=== PATIENT | female | born 1960 | race Caucasian/White ===

== ENCOUNTER 2017-05-24 05:38 | Inpatient (IN) ==
[2017-05-24] MEDS: SALINE FLUSH 10ml SYRINGE IVF PRN ×3 (06:06→07:22)
[2017-05-24] MEDS ORDERED: NS 1,000 ML IV ONE (06:11)
[2017-05-24] MEDS ORDERED: DiltiaZEM 25 MG/5 ML INJECTION IVP ONE (06:11)
[2017-05-24] MEDS ORDERED: DiltiaZEM Drip 125 MG in NS 125 ML IV SCH (06:30)
[2017-05-24] MEDS ORDERED: DiphenhydrAMINE 50 MG/ML INJECTION IVP ONE (06:52)
[2017-05-24] MEDS ORDERED: IOHEXOL 350mg/ml 75ml INJECTION ONE (07:23)
[2017-05-24] MEDS: ESMOLOL DRIP 2,500 MG/250 ML BAG IV PRN ×4 (07:57→20:15)
--- NOTE | 2017-05-24 08:54 | Emergency Department Report ---
SOB HPI - General Chief Complaint: Shortness of Breath/Dyspnea Stated Complaint: soa, leg weakness Time Seen by Provider: 05/24/17 06:10 - History of Present Illness 57-year-old female presents with sudden onset shortness of breath. Patient is had no symptoms of dyspnea until this morning. Sudden onset with atrial fibrillation noted on presentation to hospital. She has no previous history of A. fib and a previous history of cardiac issues. No tobacco use, no alcohol use. No family history of atrial fibrillation. She has very mild chest pressure especially when she feels her heart beat speed up. No fever or chills, no nausea or vomiting. - Related Data Home Medications Medication Instructions Recorded Confirmed Mobic (Meloxicam) 7.5 mg tablet 7.5 mg PO BID tab 03/05/17 05/24/17 magnesium oxide 400 mg capsule 1 cap PO BID cap 03/24/17 05/24/17 multivitamin tablet 1 tab PO DAILY 03/24/17 05/24/17 potassium gluconate 550 mg (90 mg) 550 mg PO DAILY tab 03/24/17 05/24/17 tablet Acetaminophen [Tylenol] 1,000 mg PO Q5H PRN 05/01/17 05/24/17 Calcium Carbonate [Calcium] 1 tab PO DAILY 05/01/17 05/24/17 Allergies Allergy/AdvReac Type Severity Reaction Status Date / Time Iodinated Contrast- Oral and Allergy Intermediate ITCHING Verified 05/24/17 06: 49 IV Dye Penicillins Allergy Mild HIVES Verified 05/24/17 06:49 sodium chloride for Allergy Nausea Verified 05/24/17 06:49 inhalation [From Saline] Review of Systems All systems: reviewed and negative except as stated PFSH Patient Stated Medical History Hearing Loss Yes Post Menopausal No Now No Clinic Medical History (Last Updated 02/05/17 @ 09:50 by Burke Reinoso MD) Morbid obesity with BMI of 45.0-49.9, adult (Chronic Medical) Ovarian cancer (Chronic Medical) Surgical History: Lt TKA 09-26-15 Family History: Family History (Last Updated 03/24/17 @ 09:51 by Mayra Rodriguez MA) Father Diabetes Mother Ovarian cancer Sister Ovarian cancer Maternal Grandmother Cancer of lung - Social History Smoking status: Never smoker Substance use type: other, former substance user Alcohol intake frequency: does not drink Physical Exam - Limitations Limitations: no limitations - General General appearance: alert, anxious - Normal Exams: Head:: Normocephalic without trauma Chest/Respirations:: Clear all flynn, with good airflow, and symmetry bilaterally Abdomen:: Bowel sounds positive, soft, non-tender, non-distended, no hepatosplenomegaly, masses or bruits noted Neurological:: Patient is alert, and oriented, cranial nerves, motor/sensory/ cerebellar, exams w/o gross deficits, to observation Psychiatric:: Patient exhibits, appropriate attention, emotion and affect - Cardiovascular Cardiovascular exam: Present: tachycardia, irregular rhythm. Absent: systolic murmur, diastolic murmur Course Vital Signs Temperature 97.7 F 05/24/17 05:47 Pulse Rate 107 H 05/24/17 05:47 Respiratory Rate 32 H 05/24/17 05:47 Blood Pressure 139/83 05/24/17 05:47 Pulse Oximetry 96 05/24/17 05:47 Temperature 97.7 F 05/24/17 05:47 Pulse Rate 107 H 05/24/17 05:47 Respiratory Rate 32 H 05/24/17 05:47 Blood Pressure 139/83 05/24/17 05:47 Pulse Oximetry 96 05/24/17 05:47 Shortness of Breath/Dyspnea - [facility] Narrative Medical decision making narrative: Peripheral IV placed. 500 mL normal saline bolus ordered. Cardizem 20 mg IV bolus ordered. CBC, CMP, troponin, EKG, UA ordered as was TSH. Patient was noted to be in atrial fibrillation with RVR, Cardizem bolus did not improve her rate. We do not have Cardizem IV drip solution, therefore esmolol was started IV drip. Labs returned showing no other significant abnormalities except for d- dimer which is mildly elevated. CT angiogram of chest showed no pulmonary emboli. Patient does not currently have cutter finisher and Dr. Jackson is product consultant. He agreed to consult on the patient and recommended another 30 mg Cardizem by mouth, continue esmolol drip, add Xarelto 20 mg oral. Patient is stable and preparing to discharge to ICU. Troponin is negative. - Medical Records Attestation: I reviewed the patient's medical records. - Lab Data Attestation: I reviewed the patient's lab results. Result diagrams: 05/24/17 06:10 05/24/17 06:10 Lab Results 05/24/17 05/24/17 05/24/17 Range/Units 06:10 06:10 06:10 WBC 9.1 (4.5-11.0) T/MM3 RBC 4.21 (4.00-5.20) M/MM3 Hgb 12.9 (12-16) GM/DL Hct 37.8 (36-46) % MCV 89.8 (80-100) UM3 MCH 30.6 (26-34) UUG MCHC 34.1 (31-37) GM/DL RDW Std Deviation 41.1 (36.9-50.2) FL Plt Count 264 (130-400) T/MM3 MPV 10.5 (9.4-12.4) UM3 Immature Gran % (Auto) 0.1 (0.0-0.5) % Neut % (Auto) 71.6 H (33-66) % Lymph % (Auto) 17.3 L (23-45) % Cache % (Auto) 9.6 H (0-9.0) % Eos % (Auto) 1.2 (0-4) % Baso % (Auto) 0.2 (0-2) % Neut # (Auto) 6.5 (1.8-7.7) T/MM3 Lymph # (Auto) 1.6 (1-4.8) T/MM3 Cache # (Auto) 0.9 H (0-0.8) T/MM3 Eos # (Auto) 0.1 (0-0.5) T/MM3 Baso # (Auto) 0.0 (0-0.2) T/MM3 Abs Immat Gran (auto) 0.01 (0.00-0.03) T/MM3 D-Dimer 334 H (0-230) NG/ML Turbidity < 20 (0-20) Sodium 146 H (134-144) MEQ/L Potassium 3.6 (3.6-5) MEQ/L Chloride 108 H (98-107) MEQ/L Carbon Dioxide 25 (22-30) MEQ/L Anion Gap 13 (5-15) MEQ/L BUN 16.0 (7-17) MG/DL Creatinine 0.7 (0.7-1.2) mg/dL GFR Calculation 86 BUN/Creatinine Ratio 23 (6-26) RATIO Glucose 176 H (65-110) MG/DL Calculated Osmolality 286 H (261-280) MOSM/KG Calcium 10.1 (8.4-10.2) MG/DL Total Bilirubin 0.40 (0.20-1.30) MG/DL Icterus Index < 2 (0-7) AST 26 (14-36) U/L ALT 30 (1-35) U/L Alkaline Phosphatase 91 (38-126) U/L Troponin I < 0.012 (0-0.12) ng/ml Total Protein 6.9 (6.3-8.2) g/dL Albumin 3.9 (3.5-5.0) g/dL Globulin 3.0 (2.4-3.6) G/DL Albumin/Globulin Ratio 1.3 (1.1-2.2) RATIO Specimen Hemolysis < 15 (0-25) Ur Collection Type Urine Color (YELLOW) Urine Clarity Urine pH (5.0-8.0) Ur Specific [place] (1.015-1.025) Urine Protein (NEGATIVE) Urine Glucose (UA) (NEGATIVE) Urine Ketones (NEGATIVE) Urine Occult Blood (NEGATIVE) Urine Nitrate (NEGATIVE) Urine Bilirubin (NEGATIVE) Urine Urobilinogen (NORMAL) EU/DL Ur Leukocyte Esterase (NEGATIVE) Urinalysis Comment 05/24/17 Range/Units 07:28 WBC (4.5-11.0) T/MM3 RBC (4.00-5.20) M/MM3 Hgb (12-16) GM/DL Hct (36-46) % MCV (80-100) UM3 MCH (26-34) UUG MCHC (31-37) GM/DL RDW Std Deviation (36.9-50.2) FL Plt Count (130-400) T/MM3 MPV (9.4-12.4) UM3 Immature Gran % (Auto) (0.0-0.5) % Neut % (Auto) (33-66) % Lymph % (Auto) (23-45) % Cache % (Auto) (0-9.0) % Eos % (Auto) (0-4) % Baso % (Auto) (0-2) % Neut # (Auto) (1.8-7.7) T/MM3 Lymph # (Auto) (1-4.8) T/MM3 Cache # (Auto) (0-0.8) T/MM3 Eos # (Auto) (0-0.5) T/MM3 Baso # (Auto) (0-0.2) T/MM3 Abs Immat Gran (auto) (0.00-0.03) T/MM3 D-Dimer (0-230) NG/ML Turbidity (0-20) Sodium (134-144) MEQ/L Potassium (3.6-5) MEQ/L Chloride (98-107) MEQ/L Carbon Dioxide (22-30) MEQ/L Anion Gap (5-15) MEQ/L BUN (7-17) MG/DL Creatinine (0.7-1.2) mg/dL GFR Calculation BUN/Creatinine Ratio (6-26) RATIO Glucose (65-110) MG/DL Calculated Osmolality (261-280) MOSM/KG Calcium (8.4-10.2) MG/DL Total Bilirubin (0.20-1.30) MG/DL Icterus Index (0-7) AST (14-36) U/L ALT (1-35) U/L Alkaline Phosphatase (38-126) U/L Troponin I (0-0.12) ng/ml Total Protein (6.3-8.2) g/dL Albumin (3.5-5.0) g/dL Globulin (2.4-3.6) G/DL Albumin/Globulin Ratio (1.1-2.2) RATIO Specimen Hemolysis (0-25) Ur Collection Type Urine, void-cc/notcc Urine Color Yellow (YELLOW) Urine Clarity Clear Urine pH 6.0 (5.0-8.0) Ur Specific [place] 1.010 L (1.015-1.025) Urine Protein Negative (NEGATIVE) Urine Glucose (UA) Negative (NEGATIVE) Urine Ketones Negative (NEGATIVE) Urine Occult Blood Negative (NEGATIVE) Urine Nitrate Negative (NEGATIVE) Urine Bilirubin Negative (NEGATIVE) Urine Urobilinogen 0.2 (NORMAL) EU/DL Ur Leukocyte Esterase Negative (NEGATIVE) Urinalysis Comment Microscopic not ind. - Radiology Data Attestation: I reviewed the patient's radiology results. Disposition Clinical Impression: Atrial fibrillation with RVR Disposition: 02 To [facility] [place] Acute Care Condition: Stable Prescriptions: No Action Acetaminophen [Tylenol] 1,000 mg PO Q5H PRN PRN Reason: Pain Calcium Carbonate [Calcium] 1 tab PO DAILY Mobic (Meloxicam) 7.5 mg tablet 7.5 mg PO BID tab multivitamin tablet 1 tab PO DAILY potassium gluconate 550 mg (90 mg) tablet 550 mg PO DAILY tab magnesium oxide 400 mg capsule 1 cap PO BID cap Referrals: Tommy Belcher II, MD [Family Provider] - Time of Disposition: 09:28 - Seen By: physician
[2017-05-24] MEDS ORDERED: RIVAROXABAN 20 MG TABLET PO ONE (09:04)
[2017-05-24] MEDS ORDERED: DiltiaZEM IR 30 MG TABLET PO ONE (09:04)
--- NOTE | 2017-05-24 10:19 | History & Physical Report ---
History of Present Illness Date: 05/24/17 Chief complaint: Weakness, SOA, New onset A-fib with RVR HPI: Loreto is a pleasant 57-year-old female who presented to the emergency room this morning for evaluation of shortness of breath. She reports she has been more fatigued and dyspneic since Sunday 05/21. She notes with minimal exertion she becomes very short of breath and also reports feeling palpitations intermittently. Upon arrival to the emergency room she was found to be in atrial fibrillation with rapid ventricular rate 120-180. Further workup was performed in the emergency room, WBC was normal. Sodium was found to be elevated at 146, potassium normal 3.6. Troponin was undetectable. TSH was found to be less than 0.02. UA is negative and D-dimer is elevated at 334. CT of the chest was performed which does reveal a lingular 4 millimeter nodule in the lungs however no acute pulmonary emboli or other abnormality. Patient was given 20 milligrams of IV Cardizem as well as oral 30 milligrams IR Cardizem. She was also given Xarelto 20 milligrams [address] Jackson was contacted and accepted patient in consultation, the hospitalist services were contacted and accepted patient for admission to the ICU for ongoing evaluation and treatment. Review of Systems All systems PM: 10-point ROS was reviewed, no additional remarkable complaints except - Constitutional Constitutional: Present: fatigue, weakness - Cardiovascular Cardiovascular: Present: palpitations - Respiratory Respiratory: Present: dyspnea, dyspnea on exertion - Gastrointestinal Gastrointestinal: Present: diarrhea (chronic) Past Medical History Patient Stated Medical History History of ovarian cancer-2011 (underwent chemotherapy and radiation) Graves' disease Tired ablation-04/02/17 Morbid obesity Surgical History: Lt TKA 09-26-15. Order catheter placement. Removal of cyst on back. Total abdominal hysterectomy Family History Updates: Father-diabetes. Mother-ovarian cancer. Sister- ovarian cancer. Maternal Grandmother-lung cancer - Social History Smoking status: Never smoker Substance use type: does not use Alcohol intake frequency: does not drink Housing: house Current occupational status: [place] [place] Current residence: Apartment/Private Home Social history: Primary care provider, Dr. 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 Reinoso Medications Home Medications Medication Instructions Recorded Confirmed Type Mobic (Meloxicam) 7.5 mg tablet 7.5 mg PO BID tab 03/05/17 05/24/17 History magnesium oxide 400 mg capsule 1 cap PO BID cap 03/24/17 05/24/17 History multivitamin tablet 1 tab PO DAILY 03/24/17 05/24/17 History potassium gluconate 550 mg (90 mg) 550 mg PO DAILY tab 03/24/17 05/24/17 History tablet Acetaminophen [Tylenol] 1,000 mg PO Q5H PRN 05/01/17 05/24/17 History Calcium Carbonate [Calcium] 1 tab PO DAILY 05/01/17 05/24/17 History Allergies Allergy/AdvReac Type Severity Reaction Status Date / Time Iodinated Contrast- Oral and Allergy Intermediate ITCHING Verified 05/24/17 06: 49 IV Dye Penicillins Allergy Mild HIVES Verified 05/24/17 06:49 sodium chloride for Allergy Nausea Verified 05/24/17 06:49 inhalation [From Saline] Exam Vital Signs: Temperature 97.7 F 05/24/17 05:47 Pulse Rate 107 H 05/24/17 05:47 Respiratory Rate 32 H 05/24/17 05:47 Blood Pressure 139/83 05/24/17 05:47 Pulse Oximetry 96 05/24/17 05:47 Telemetry Rhythm: A-fib with RVR Height/Weight/BMI: Height 1.7 m Weight 119.6 kg - Constitutional Present: no acute distress, well nourished, well developed - Routine HEENT Exam Eye: Present: EOMI ENT: Present: mucous membranes moist, dentition normal - Routine Respiratory Exam Present: CTA bilaterally. Absent: wheezes - Routine Cardiovascular Exam Present: S1, S2, tachycardia (130), irregular rhythm. Absent: murmur - Routine Abdominal Exam Present: soft, normoactive bowel sounds, non distended. Absent: tenderness - Routine Extremities Exam Present: edema (trace BLE edema), pulses intact - Routine Skin Exam Present: intact, dry, warm - Routine Neurological Exam Present: alert, oriented X3, CN II-XII intact, moving all extremities - Routine Psychiatric Exam Present: normal affect, cooperative Results - Labs CBC & Chem 7: 05/24/17 06:10 05/24/17 06:10 Assessment and Plan (1) Atrial fibrillation with RVR Current visit: Yes Status: Acute Assessment and Plan: Impression New-onset atrial fibrillation with rapid ventricular rate Hypernatremia-present on admission Graves' disease Morbid obesity History of ovarian cancer Plan Patient will be admitted to the ICU under the care of Dr. Madrid. Consultations placed to Dr. Jackson for further cardiology management and recommendations. Patient was given both IV and by mouth boluses of Cardizem while in the emergency room. She will now be placed on Esmolol Drip for cardiac rate control Monitor carefully on telemetry and obtain serial troponins 3 Patient was given Xarelto 20 milligrams by mouth 1 while in the emergency room. We will continue this daily for anticoagulation Half-normal saline at 75 ML per hour for gentle hydration Patient has known hyperthyroidism and underwent a thyroid ablation on April 02. TSH remains less than 0.02. May need to speak with Dr. Reinoso, patient's gem cutter. Obtain CBC, BMP and magnesium tomorrow to follow blood counts, renal function and electrolytes Will discuss further orders and plan of care with attending, Dr. Madrid At time of discharge medical care will return to primary care provider, Dr Belcher DVT Prophylaxis: Xarelto Resuscitation Status: Full Code - Time spent with patient Time with patient PN: 50 minutes - Physician Narrative Physician: Osvaldo aMdrid MD Narrative: Date: 05/24/17 Time: 1534 Have independently interviewed and examined pt. Chart reviewed. Case discussed with ED physician and my CREDENTIALING MANAGER. Care plan developed with my supervision; agree with above. Presents to ED secondary to SOA. No cough/congestion, but notes increasingly winded with activities. Denies chest pressure or pain. Occasionally will feel palpitations. No increased edema, but does chronically note swelling to legs. Denies ab pain or nausea. Some decreased appetite reported. No f/c or recent viral syndrome. Evaluated in ED-HR rapid, afib. HR would slow down with medications, but rate unable to be controlled. With AFIB and RVR patient [place] [facility] [place] evaluation and treatment. Lungs: decreased, no distress CV: tachy, irregular AB: soft nt/nd EXT: +2 edema MSE: awake alert Plan: OBS in CCU. Esmolol for rate control. Xarelto for anticoagulation. Consult Dr Jackson for cardiac evaluation and treatment recommendations. Serial troponin. Initiate 1/2NS for hydration and to provide renal protection secondary to IV contrast given in ED. Hospital Course Summary Disclaimer: The visit summary below is not to be considered part of the above Progress Note. Hospital Course: Impression New-onset atrial fibrillation with rapid ventricular rate Hypernatremia-present on admission Graves' disease Morbid obesity History of ovarian cancer Plan Patient will be admitted to the ICU under the care of Dr. Madrid. Consultations placed to Dr. Jackson for further cardiology management and recommendations. Patient was given both IV and by mouth boluses of Cardizem while in the emergency room. She will now be placed on Esmolol Drip for cardiac rate control Monitor carefully on telemetry and obtain serial troponins 3 Patient was given Xarelto 20 milligrams by mouth 1 while in the emergency room. We will continue this daily for anticoagulation Half-normal saline at 75 ML per hour for gentle hydration Patient has known hyperthyroidism and underwent a thyroid ablation on April 02. TSH remains less than 0.02. May need to speak with Dr. Reinoso, patient's gem cutter. Obtain CBC, BMP and magnesium tomorrow to follow blood counts, renal function and electrolytes Will discuss further orders and plan of care with attending, Dr. Madrid At time of discharge medical care will return to primary care provider, Dr Belcher
[2017-05-24] MEDS ORDERED: ACETAMINOPHEN 500 MG TABLET PO PRN (11:03)
[2017-05-24] MEDS: 1/2 NS 1,000 ML IV SCH (11:26)
[2017-05-24 11:33] VITALS: BMI 40.8
[2017-05-24] MEDS: RIVAROXABAN 20 MG TABLET PO SCH (18:00)
[2017-05-24] MEDS ORDERED: DiltiaZEM 25 MG/5 ML INJECTION IVP PRN (18:34)
--- NOTE | 2017-05-24 18:47 | Cardiology Consult Note ---
History of Present Illness Consult reason: atrial fibrillation History of present illness: Mr. Blackwood is a pleasant 57-year-old female, whose mother is my patient, patient herself has no prior known heart disease, history of Graves' disease treated with radioactive iodine ablation treatment on 04/02/2017. She presented to the emergency room with a three-day history of dyspnea with mild activity exertional palpitations , weakness in her legs and feeling hot flashes. She adamantly denies any chest pain pressure orthopnea PND lower extremity edema dizziness or syncope. 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 Patient went to the emergency room and was found to be in atrial fibrillation with RVR in the 170s. d-dimer was elevated and had hyperglycemia without prior known diabetes.Chest x-ray shows no heart failure or cardiomegaly, EKG shows A. fib 100 and teens without acute changes of ischemia or evidence of previous infarct, CT angiogram of the chest showed no pulmonary embolus. Patient received several doses of IV diltiazem with only mild improvement in HR , blood pressure was borderline and subsequently in ED started on esmolol drip and titrated up very slowly in CCU at 80 mics per kilogram per minute, heart rate still intermittently up to 150 then goes down to s100 and teens at times a blood pressure on the monitor in the mid 80s to 100s systolic patient's entirely asymptomatic without any dizziness or lightheadedness, as a matter of fact she is sitting up in chair denying chest pain and dizziness or dyspnea. She is on room air. At My request patient received additional IV diltiazem in emergency room ,I agreed with esmolol drip and a TSH was ordered came back suppressed, free T4 T3 remain pending at this time. Troponin was normal , CBC and chemistry are otherwise unremarkable. Review of systems positive loud snoring and reported history of sleep apnea but no treatment delivered. Denies hypertension or diabetes or hypercholesterolemia no previous heart disease or cardiac testing. No hematochezia melena previous bleed TIA or strokes. Positive for decreased appetite for a few days, loose bowel movements/diarrhea ,normal brown color. No fever chills or phlegm production no nausea or vomiting. Positive for fatigue . Review of Systems All systems PM: 10-point ROS was reviewed, no additional remarkable complaints except PFSH Patient Stated Medical History Hearing Loss Yes: BILATERAL Blood Transfusions Yes Chemotherapy Yes Post Menopausal Yes Clinic Medical History (Last Updated 02/05/17 @ 09:50 by Burke Reinoso MD) Morbid obesity with BMI of 45.0-49.9, adult (Chronic Medical) Ovarian cancer (Chronic Medical) osteoarthritis suspected sleep apnea Surgical History: Lt TKA 09-26-15. Order catheter placement. Removal of cyst on back. Total abdominal hysterectomy Family History: Family History (Last Updated 03/24/17 @ 09:51 by Mayra Rodriguez MA) Father Diabetes Mother Ovarian cancer Sister Ovarian cancer Maternal Grandmother Cancer of lung Her sister had atrial fibrillation Family History Updates: Father-diabetes. Mother-ovarian cancer and coronary artery disease with previous stent one her 70s. She is currently in her the 80s. Sister-ovarian cancer. Maternal Grandmother-lung cancer. Her sister has atrial fibrillation - Social History Smoking status: Never smoker Substance use type: does not use Alcohol intake frequency: does not drink Housing: house Current occupational status: employed ([employer] [employer]) Current residence: Apartment/Private Home Medications Home Medications Medication Instructions Recorded Confirmed Type Mobic (Meloxicam) 7.5 mg tablet 7.5 mg PO BID tab 03/05/17 05/24/17 History magnesium oxide 400 mg capsule 1 cap PO BID cap 03/24/17 05/24/17 History multivitamin tablet 1 tab PO DAILY 03/24/17 05/24/17 History potassium gluconate 550 mg (90 mg) 550 mg PO DAILY tab 03/24/17 05/24/17 History tablet Acetaminophen [Tylenol] 1,000 mg PO Q5H PRN 05/01/17 05/24/17 History Calcium Carbonate [Calcium] 1 tab PO DAILY 05/01/17 05/24/17 History Allergies Allergy/AdvReac Type Severity Reaction Status Date / Time Iodinated Contrast- Oral and Allergy Intermediate ITCHING Verified 05/24/17 06: 49 IV Dye Penicillins Allergy Mild HIVES Verified 05/24/17 06:49 sodium chloride for Allergy Nausea Verified 05/24/17 06:49 inhalation [From Saline] Exam Vital signs: Temperature 97.7 F 05/24/17 10:58 Pulse Rate 128 H 05/24/17 17:30 Respiratory Rate 43 H 05/24/17 17:30 Blood Pressure 109/67 05/24/17 17:30 Pulse Oximetry 95 05/24/17 17:30 - Constitutional no acute distress, morbidly obese - Routine HEENT Exam Head: Present: normocephalic, atraumatic Eye: Present: EOMI, PERRL ENT: Present: mucous membranes moist Nose: moist mucous membranes - Routine Neck Exam Present: supple, normal carotid upstroke. Absent: JVD, carotid bruit, lymphadenopathy, thyromegaly - Routine Respiratory Exam Present: CTA bilaterally - Routine Cardiovascular Exam Present: no murmur, tachycardia, irregularly irregular. Absent: rubs, S3, S4, JVD - Routine Abdominal Exam Present: soft, normoactive bowel sounds, non distended (quite obese). Absent: organomegaly - Routine Extremities Exam Present: edema (questionable trace edema in the ankles). Absent: cyanosis, clubbing - Routine Skin Exam Present: intact, dry. Absent: cyanosis, erythema, pallor - Routine Neurological Exam Present: alert, oriented X3, CN II-XII intact, moving all extremities, vision grossly intact, normal speech. Absent: motor deficit, hearing grossly intact, facial asymmetry - Routine Psychiatric Exam Present: normal affect, normal thought process, cooperative Results 05/26/17 04:52 05/26/17 04:52 Cardiac Enzymes 05/24/17 Range/Units 11:50 Troponin I < 0.012 (0-0.12) ng/ml Intake and Output 05/24/17 05/24/17 05/24/17 06:59 14:59 22:59 Intake Total 207.506 / 1207.506 281.993 / 281.993 Output Total 600 / 600 Balance 207.506 / 1207.506 -318.007 / -318.007 Intake: IV 207.506 / 207.506 191.993 / 191.993 Esmolol Drip 2,500 mg In 250 ml 207.506 / 207.506 191.993 / 191.993 @ 50 MCG/KG/MIN 35.88 mls/hr IV .Q6H59M PRN Rx#:[id number] Oral 90 / 90 Output: Urine 600 / 600 Other: Urine Appearance Clear Urine Color Yellow Urine Odor Strong # Voids 1 1 Weight 118.5 kg Patient Weight 05/25/17 06:59 Weight 118.5 kg - Imaging and Cardiology EKG results: image reviewed Imaging & Cardiology Narrative: 05/24/17 18:59 Chest x-ray images reviewed - EKG Interpretation EKG shows: atrial fibrillation EKG interpretations - Dysrhythmias Supraventricular dysrhythmia: atrial fibrillation Assessment and Plan - Assessment and Plan Symptomatic New Onset atrial fibrillation with RVR, of a duration expected to be about or greater than 72 hours chads 2 vasc score at least one Hyperthyroidism status post radioactive iodine ablation March 2017, still with a suppressed TSH, free T4 T3 pending Morbid obesity with history of loud snoring and suspected obstructive sleep apnea hyperglycemia Rate control and anticoagulation As discussed with ER physician ,CCU nurse, the patient and her sister Agree with IV esmolol drip with intermittent IV diltiazem bolus if necessary , please see order Esmolol drip to be titrated upward (or down ) by 50 g dosing intervals. Due to present tachycardia asked the nurse to take it up immediately to 100 mics per kilogram per minute Going to start the by mouth Inderal LA 120 mg twice a day 3 doses then expected daily dose 160-240 milligrams daily Anticoagulation is a started in emergency room with Xarelto Will need an echocardiogram at some point, to rule out structural heart disease. If atrial fibrillation continues expect to need a RITA/cardioversion at some point If adequate heart rate control is achieved on oral drugs within next 48-96 hours , then the rest of the workup /treatment may be continued on outpatient basis. Kindly address hyperthyroidism which is the likely culprit. Unclear why TSH is still suppressed at 2 months following radioactive iodine ablation. Outpatient sleep study is recommended Thank you for consultation Hospital Course Summary Disclaimer: The visit summary below is not to be considered part of the above Progress Note. Hospital Course: Impression New-onset atrial fibrillation with rapid ventricular rate Hypernatremia-present on admission Graves' disease Morbid obesity History of ovarian cancer Plan Patient will be admitted to the ICU under the care of Dr. Madrid. Consultations placed to Dr. Jackson for further cardiology management and recommendations. Patient was given both IV and by mouth boluses of Cardizem while in the emergency room. She will now be placed on Esmolol Drip for cardiac rate control Monitor carefully on telemetry and obtain serial troponins 3 Patient was given Xarelto 20 milligrams by mouth 1 while in the emergency room. We will continue this daily for anticoagulation Half-normal saline at 75 ML per hour for gentle hydration Patient has known hyperthyroidism and underwent a thyroid ablation on April 02. TSH remains less than 0.02. May need to speak with Dr. Reinoso, patient's design quality engineer. Obtain CBC, BMP and magnesium tomorrow to follow blood counts, renal function and electrolytes Will discuss further orders and plan of care with attending, Dr. Madrid At time of discharge medical care will return to primary care provider, Dr Belcher
[2017-05-24] MEDS: PROPRANOLOL LA 120 MG CAPSULE PO SCH (19:32)
[2017-05-24] MEDS: MAGNESIUM OXIDE 400 MG TABLET PO SCH (20:57)
[2017-05-25] MEDS: 1/2 NS 1,000 ML IV SCH (00:54)
[2017-05-25] MEDS: ESMOLOL DRIP 2,500 MG/250 ML BAG IV PRN ×6 (03:51→22:24)
[2017-05-25] MEDS ORDERED: POTASSIUM GLUCONATE 550 MG PO SCH (09:00)
[2017-05-25] MEDS: MULTI-VITAMIN PLAIN TABLET PO SCH (09:09)
[2017-05-25] MEDS: MAGNESIUM OXIDE 400 MG TABLET PO SCH ×2 (09:10→20:04)
[2017-05-25] MEDS: PROPRANOLOL LA 120 MG CAPSULE PO SCH (09:10)
--- NOTE | 2017-05-25 09:14 | XRay Report ---
INDICATION: soa PROCEDURE: CHEST 2-VIEWS UPRIGHT (PA & LAT) Encounter: Initial COMPARISON: September 05, 2015 FINDINGS: The lungs are clear without evidence of focal abnormal airspace opacity. There is no pleural effusion or pneumothorax. Left IJ port catheter. The heart size, mediastinal contours and pulmonary vascularity are within normal limits. There is no significant skeletal abnormality. IMPRESSION: No acute cardiopulmonary disease. .
--- NOTE | 2017-05-25 09:22 | CT Scan Report ---
Indication: dyspnea, elevated ddimer PROCEDURE: CT angio pulm emboli: Encounter: Initial Comparison: CT abdomen and pelvis dated April 25, [address] dated October 07, 2013 Technique: Axial CT pulmonary angiographic phase images were performed through the chest after the administration of intravenous contrast. Coronal and Sagittal MIP reconstructed images were created and reviewed. Automated Exposure Control and Iterative Reconstruction dose reducing techniques were utilized. Contrast: Omnipaque 350 72 mL Findings: Pulmonary arteries: Exam is diagnostic to the segmental pulmonary arterial level. No filling defects identified to suggest a pulmonary embolus. Other findings: No pneumothorax or pleural effusion. No consolidative pneumonia. There is a new irregular subpleural 6 mm nodule in the lingula on axial image #34. The lung flynn are otherwise clear. Central airways are patent. No axillary or mediastinal adenopathy. Heart size is normal. Upper abdomen shows no acute findings. Impression: 1. No pulmonary embolus or acute disease process seen in the chest. 2. New 6 mm lingular pulmonary nodule raising concern for metastasis. There is a preliminary report by [email or web address]. .
[2017-05-25] MEDS: MAG-AL + SIM ORAL LIQUID 30ml PO PRN (09:50)
--- NOTE | 2017-05-25 10:29 | Progress Note ---
- Date 05/25/17 Subjective: F/U: Afib with RVR Doing okay today. No chest pressure pain. HR still in afib with rapid and variable rate. BP in low 100s. Breathing stable-not feeling increased SOA or congestion. No pain with breathing. Feels gassy-burping often. Passing flatus. Slight nausea. Would like to be up more. Urinating well. No f/c. Objective Vital signs: Temperature 98.2 F 05/25/17 08:29 Pulse Rate 98 05/25/17 08:30 Respiratory Rate 18 05/25/17 08:30 Blood Pressure 90/59 05/25/17 08:30 Pulse Oximetry 95 05/25/17 08:30 Rhythm: Atrial Fibrillation with RVR Height/Weight/BMI: Height 1.7 m Weight 118.5 kg Body Mass Index 40.8 - Constitutional Present: well nourished, well developed, average body habitus, morbidly obese, cooperative - Routine HEENT Exam Head: Present: normocephalic, atraumatic Eye: Present: EOMI, PERRL ENT: Present: mucous membranes moist - Routine Respiratory Exam Present: CTA bilaterally. Absent: rales, respiratory distress, rhonchi, stridor , wheezes - Routine Cardiovascular Exam Present: no murmur, tachycardia, irregularly irregular - Routine Abdominal Exam Present: soft, non distended, non tender. Absent: normoactive bowel sounds ( Decreased) - Routine Extremities Exam Present: edema (+2BLE), pulses intact. Absent: cyanosis, clubbing - Routine Musculoskeletal Exam Musculoskeletal: Present: no clubbing or cyanosis, normal strength - Routine Skin Exam Present: dry, warm - Routine Neurological Exam Present: alert, oriented X3, CN II-XII intact, moving all extremities, vision grossly intact, hearing grossly intact, normal speech. Absent: motor deficit, altered mental status - Routine Psychiatric Exam Present: normal affect, normal thought process, cooperative Results - Labs CBC & Chem 7: 05/25/17 04:40 05/25/17 04:40 Assessment and Plan (1) Atrial fibrillation with RVR Current visit: Yes Status: Acute Assessment and Plan: Impression New-onset atrial fibrillation with rapid ventricular rate Hypernatremia (POA) Graves' disease Morbid obesity History of ovarian cancer Plan Oral propranolol started by Dr Jackson-working to wean down esmolol. Rhythm afib with rapid and variable rate. Continue Xarelto for anticoagulation. Renal status stable post IV contrast. Taking po well. Will discontinue IVF. Free T3 and T4 pending. Will place consult for Evaluation by Dr Reinoso - is scheduled to see him in about 2 weeks. Monitor BMP and Mg secondary to medications use. Will recheck CBC in am due to Xarelto use. Continue CCU care and monitoring - with persistent afib with RVR, patient not able to move to medical floor at this time. With continued need for IV drip to control rate, will change to inpatient admission status. Case discussed with CCU nursing. Time spent with patient care 25 minutes. DVT Prophylaxis: Xarelto Resuscitation Status: Full Code - Time spent with patient Time with patient PN: 25 minutes - Physician Narrative Physician: Osvaldo Madrid MD Narrative: Date: 05/25/17 Time: 1026 Hospital Course Summary Disclaimer: The visit summary below is not to be considered part of the above Progress Note. Hospital Course: 05/24/17 OBS Admission Patient will be admitted to the ICU under the care of Dr. Madrid. Consultations placed to Dr. Jackson for further cardiology management and recommendations. Patient was given both IV and by mouth boluses of Cardizem while in the emergency room. She will now be placed on Esmolol Drip for cardiac rate control. Monitor carefully on telemetry and obtain serial troponins 3. Patient was given Xarelto 20 milligrams by mouth 1 while in the emergency room. We will continue this daily for anticoagulation. Half-normal saline at 75 ML per hour for gentle hydration. Patient has known hyperthyroidism and underwent a thyroid ablation on April 02. TSH remains less than 0.02. May need to speak with Dr. Reinoso, patient's curing machine operator. Obtain CBC, BMP and magnesium tomorrow to follow blood counts, renal function and electrolytes. At time of discharge medical care will return to primary care provider, Dr Belcher. 05/25/17 Oral propranolol started by Dr Jackson-working to wean down esmolol. Rhythm afib with rapid and variable rate. Continue Xarelto for anticoagulation. Renal status stable post IV contrast. Taking po well. Will discontinue IVF. Free T3 and T4 pending. Will place consult for Evaluation by Dr Reinoso - is scheduled to see him in about 2 weeks. Monitor BMP and Mg secondary to medications use. Will recheck CBC in am due to Xarelto use. Continue CCU care and monitoring - with persistent afib with RVR, patient not able to move to medical floor at this time. With continued need for IV drip to control rate, will change to inpatient admission status.
[2017-05-25] MEDS: CALCIUM CARBONATE 500 MG TABLET PO SCH (11:04)
[2017-05-25] MEDS ORDERED: PROPRANOLOL LA 120 MG CAPSULE PO ONE (11:55)
[2017-05-25] MEDS: RIVAROXABAN 20 MG TABLET PO SCH (17:25)
[2017-05-26] MEDS: ESMOLOL DRIP 2,500 MG/250 ML BAG IV PRN ×6 (01:26→17:01)
[2017-05-26] MEDS: DIGOXIN 500 MCG/2 ML INJECTION IVP PRN ×2 (01:26→07:40)
[2017-05-26] MEDS: SALINE FLUSH 10ml SYRINGE IVF PRN (07:40)
[2017-05-26] MEDS: MAG-AL + SIM ORAL LIQUID 30ml PO PRN (07:44)
[2017-05-26] MEDS ORDERED: PROPRANOLOL LA 120 MG CAPSULE PO SCH (09:00)
[2017-05-26] MEDS ORDERED: PROPRANOLOL LA 80 MG CAPSULE PO SCH (09:00)
[2017-05-26] MEDS: MULTI-VITAMIN PLAIN TABLET PO SCH (09:11)
[2017-05-26] MEDS: CALCIUM CARBONATE 500 MG TABLET PO SCH (09:11)
[2017-05-26] MEDS: PROPYLTHIOURACIL 50 MG TABLET PO SCH ×3 (09:11→20:07)
[2017-05-26] MEDS: MAGNESIUM OXIDE 400 MG TABLET PO SCH ×2 (09:11→20:07)
[2017-05-26] MEDS ORDERED: BISACODYL 10 MG SUPPOSITORY RECTALLY PRN (09:42)
[2017-05-26] MEDS ORDERED: PROPRANOLOL LA 120 MG CAPSULE PO ONE (13:45)
--- NOTE | 2017-05-26 13:57 | Cardiology Progress Note ---
Subjective Interval history: nabil c/o of some abd distension earlier and c/o constipation. She did receive MOM with improvement per Lorena RN. walked last night in the unit felt a bit SOA but no dizziness cp or severe dyspnea. no plapitaions. she s still on Esmolol gtt at 150 mcg. hasn't gentry able to wean. did erceive 2 doses of IV dig w/o much effect on HR. seen by Dr Reinoso and started on PTU. tele afib 110's w short few sec.runs up 150 during conversation and up 120'130s w activity per RN. Exam Vital signs: Temperature 99.5 F 05/26/17 04:00 Pulse Rate 103 H 05/26/17 07:00 Respiratory Rate 17 05/26/17 07:00 Blood Pressure 117/67 05/26/17 07:00 Pulse Oximetry 93 05/26/17 07:00 Inpatient Medications: Generic Name Dose Route Start Last Admin Trade Name Freq PRN Reason Stop Dose Admin Acetaminophen 1,000 mg 05/24/17 11:03 Tylenol PO Q5H PRN Pain Al Hydroxide/Mg Hydroxide 30 ml 05/25/17 09:47 05/26/17 07:44 Maalox Plus PO 30 ml Q3H PRN Administration Indigestion Bisacodyl 10 mg 05/26/17 09:42 05/26/17 09:47 Dulcolax RECTALLY 10 mg DAILY PRN Administration Constipation Calcium Carbonate 500 mg 05/25/17 09:00 05/26/17 09:11 Calcium PO 500 mg DAILY CHRISTEN Administration Digoxin 250 mcg 05/25/17 17:36 05/26/17 07:40 Lanoxin IVP 250 mcg Q6H PRN Administration Diltiazem HCl 15 mg 05/24/17 18:34 Cardizem 25 Mg Inj IVP Q6H PRN Tachycardia Esmolol HCl 2,500 mg in 250 mls @ 35.88 mls/hr 05/24/17 06:27 05/26/17 10:15 Brevibloc Drip IV 150 mcg/kg/min .Q6H59M PRN 107.64 mls/hr Protocol Administration 50 MCG/KG/MIN Magnesium Hydroxide 30 ml 05/25/17 11:01 05/26/17 04:06 Mom PO 30 ml DAILY PRN Administration Constipation Magnesium Oxide 400 mg 05/24/17 21:00 05/26/17 09:11 Magox PO 400 mg BID CHRISTEN Administration Multivitamins 1 tab 05/25/17 09:00 05/26/17 09:11 Theragran PO 1 tab DAILY CHRISTEN Administration Propylthiouracil 150 mg 05/26/17 09:00 05/26/17 09:11 Ptu PO 150 mg Q6HR CHRISTEN Administration Rivaroxaban 20 mg 05/24/17 17:30 05/25/17 17:25 Xarelto PO 20 mg WS CHRISTEN Administration Sodium Chloride 10 - 80 ml 05/24/17 06:11 05/26/17 07:40 Iv Flush IVF 10 ml PRN PRN Administration Flushing Discontinued Medications Generic Name Dose Route Start Last Admin Trade Name Freq PRN Reason Stop Dose Admin Diltiazem HCl 20 mg 05/24/17 06:11 05/24/17 06:11 Cardizem 25 Mg Inj IVP 05/24/17 06:12 20 mg O ONE Administration Diltiazem HCl 30 mg 05/24/17 09:04 05/24/17 09:59 Cardizem Ir 30 Mg Tab PO 05/24/17 09:05 30 mg O ONE Administration Diphenhydramine HCl 50 mg 05/24/17 06:52 05/24/17 07:21 Benadryl IVP 05/24/17 06:53 50 mg O ONE Administration Sodium Chloride 1,000 mls @ 1,000 mls/hr 05/24/17 06:11 05/24/17 07:33 Normal Saline IV 05/24/17 07:10 Infused .Q1H ONE Infusion Diltiazem HCl 125 mg/ Sodium 125 mls @ 5 mls/hr 05/24/17 06:30 05/24/17 15:44 Chloride IV Not Given .Q24H CHRISTEN Protocol Sodium Chloride 1,000 mls @ 75 mls/hr 05/24/17 11:03 05/25/17 10:46 1/2 Normal Saline IV Infused .[id number] CHRISTEN Infusion Non-Formulary Medication 550 mg 05/25/17 09:00 Potassium Gluconate [Potassium Gluconate] PO DAILY CHRISTEN Propranolol HCl 120 mg 05/24/17 19:00 05/25/17 09:10 Inderal La PO 05/25/17 21:01 120 mg BID CHRISTEN Administration Propranolol HCl 160 mg 05/26/17 09:00 Inderal La PO DAILY CHRISTEN Propranolol HCl 120 mg 05/25/17 11:55 05/25/17 13:51 Inderal La PO 05/25/17 11:56 120 mg O ONE Administration Propranolol HCl 240 mg 05/26/17 09:00 05/26/17 09:10 Inderal La PO 240 mg DAILY CHRISTEN Administration Rivaroxaban 20 mg 05/24/17 09:04 05/24/17 09:59 Xarelto PO 05/24/17 09:05 20 mg O ONE Administration - Constitutional no acute distress, well nourished, obese, cooperative - Routine HEENT Exam Head: Present: normocephalic, atraumatic Eye: Present: EOMI ENT: Present: mucous membranes moist - Routine Neck Exam Absent: JVD - Routine Respiratory Exam Present: CTA bilaterally - Routine Cardiovascular Exam Present: tachycardia, irregularly irregular - Routine Abdominal Exam Present: soft, normoactive bowel sounds, non distended - Routine Extremities Exam Present: edema (minimal), normal capillary refill. Absent: cyanosis, clubbing - Routine Skin Exam Present: intact, dry. Absent: cyanosis, erythema, pallor - Routine Neurological Exam Present: alert, oriented X3, CN II-XII intact, moving all extremities, vision grossly intact, normal speech. Absent: motor deficit, hearing grossly intact - Routine Psychiatric Exam Present: normal affect, normal thought process, cooperative Results 05/26/17 04:52 05/26/17 04:52 CBC 05/26/17 Range/Units 04:52 WBC 10.3 (4.5-11.0) T/MM3 RBC 3.87 L (4.00-5.20) M/MM3 Hgb 11.9 L (12-16) GM/DL Hct 35.2 L (36-46) % Plt Count 252 (130-400) T/MM3 Neut # (Auto) 8.4 H (1.8-7.7) T/MM3 Lymph # (Auto) 1.0 (1-4.8) T/MM3 Crosby # (Auto) 0.8 (0-0.8) T/MM3 Eos # (Auto) 0.1 (0-0.5) T/MM3 Baso # (Auto) 0.0 (0-0.2) T/MM3 Comprehensive Metabolic Panel 05/26/17 Range/Units 04:52 Sodium 144 (134-144) MEQ/L Potassium 3.9 (3.6-5) MEQ/L Chloride 107 (98-107) MEQ/L Carbon Dioxide 25 (22-30) MEQ/L BUN 15.0 (7-17) MG/DL Creatinine 0.7 (0.7-1.2) mg/dL Glucose 143 H (65-110) MG/DL Calcium 9.6 (8.4-10.2) MG/DL Intake and Output 05/25/17 05/26/17 05/26/17 22:59 06:59 14:59 Intake Total 920.000 / 920.000 990.000 / 990.000 250 / 250 Output Total 600 / 800 850 / 850 Balance 320.000 / 120.000 140.000 / 140.000 250 / 250 Intake: IV 500.000 / 500.000 750.000 / 750.000 250 / 250 Esmolol Drip 2,500 mg In 250 ml 500.000 / 500.000 750.000 / 750.000 250 / 250 @ 50 MCG/KG/MIN 35.88 mls/hr IV .Q6H59M PRN Rx#:[id number] Oral 420 / 420 240 / 240 Output: Urine 600 / 800 850 / 850 Other: Urine Appearance Clear Clear Urine Color Yellow Yellow # Voids 1 - EKG Interpretation EKG shows: atrial fibrillation Assessment and Plan - Assessment and Plan afib w RVR hyperthyroid hyperglycemia see orders incraese PO Inderal and wean IV Esmolol may ahve to use IV cardizema nd Dig in tarnsition awaiting Rx for hyperthyroid to kick in don't plan Dc CV at this time , will await until hyperthyroid becomes better control. Hospital Course Summary Disclaimer: The visit summary below is not to be considered part of the above Progress Note. Hospital Course: 05/24/17 OBS Admission Patient will be admitted to the ICU under the care of Dr. Madrid. Consultations placed to Dr. Jackson for further cardiology management and recommendations. Patient was given both IV and by mouth boluses of Cardizem while in the emergency room. She will now be placed on Esmolol Drip for cardiac rate control. Monitor carefully on telemetry and obtain serial troponins 3. Patient was given Xarelto 20 milligrams by mouth 1 while in the emergency room. We will continue this daily for anticoagulation. Half-normal saline at 75 ML per hour for gentle hydration. Patient has known hyperthyroidism and underwent a thyroid ablation on April 02. TSH remains less than 0.02. May need to speak with Dr. Reinoso, patient's metal casket assembler. Obtain CBC, BMP and magnesium tomorrow to follow blood counts, renal function and electrolytes. At time of discharge medical care will return to primary care provider, Dr Belcher. 05/25/17 Oral propranolol started by Dr Jackson-working to wean down esmolol. Rhythm afib with rapid and variable rate. Continue Xarelto for anticoagulation. Renal status stable post IV contrast. Taking po well. Will discontinue IVF. Free T3 and T4 pending. Will place consult for Evaluation by Dr Reinoso - is scheduled to see him in about 2 weeks. Monitor BMP and Mg secondary to medications use. Will recheck CBC in am due to Xarelto use. Continue CCU care and monitoring - with persistent afib with RVR, patient not able to move to medical floor at this time. With continued need for IV drip to control rate, will change to inpatient admission status.
--- NOTE | 2017-05-26 16:05 | Progress Note ---
- Date 05/26/17 Subjective: F/U: Afib with RVR Doing okay this afternoon. [place] very full, bloated and nauseated this morning- not wanting to eat. After given Dulcolax suppository and having good bowel output, symptoms improved. Breathing doing well-not SOA or congested. No chest pressure or pain. Denies feeling dizzy of unsteady with positional changes. Objective Vital signs: Temperature 98.8 F 05/26/17 08:00 Pulse Rate 101 H 05/26/17 14:30 Respiratory Rate 18 05/26/17 14:30 Blood Pressure 115/68 05/26/17 13:30 Pulse Oximetry 95 05/26/17 14:30 Rhythm: Atrial Fibrillation with RVR Height/Weight/BMI: Weight 121.1 kg - Constitutional Present: well nourished, well developed, obese, cooperative - Routine HEENT Exam Head: Present: normocephalic, atraumatic Eye: Present: EOMI, PERRL ENT: Present: mucous membranes moist - Routine Respiratory Exam Present: decreased breath sounds. Absent: rales, respiratory distress, rhonchi - Routine Cardiovascular Exam Present: tachycardia, irregularly irregular - Routine Abdominal Exam Present: soft, normoactive bowel sounds, non distended, non tender - Routine Extremities Exam Present: edema (+2 BLE). Absent: cyanosis, clubbing - Routine Musculoskeletal Exam Musculoskeletal: Present: no clubbing or cyanosis - Routine Skin Exam Present: dry, warm - Routine Neurological Exam Present: alert, oriented X3, CN II-XII intact, moving all extremities, vision grossly intact, normal speech. Absent: altered mental status - Routine Psychiatric Exam Present: normal affect, normal thought process, cooperative Results - Labs CBC & Chem 7: 05/26/17 04:52 05/26/17 04:52 Assessment and Plan (1) Atrial fibrillation with RVR Current visit: Yes Status: Acute Assessment and Plan: Impression New-onset atrial fibrillation with rapid ventricular rate Hypernatremia (POA) - resolved Graves' disease Constipation Morbid obesity History of ovarian cancer Plan Sodium normalized at 144. Hemoglobin with decrease to 11.[address] Jackson increasing oral propranolol in attempt to wean off esmolol. PTU started by Dr Reinoso. He would not recommend attempt at cardioversion until thyroid status stabilizes. Bowels moved well post Dulcolax suppository. Recheck hemogram in am due to anemia and Xarelto use. Continue with CCU monitoring and treatment due to esmolol drip for heart rate control. Case discussed with CCU nursing. Time spent with patient care 15 minutes. DVT Prophylaxis: Xarelto Resuscitation Status: Full Code - Time spent with patient Time with patient PN: 15 minutes - Physician Narrative Physician: Osvaldo Madrid MD Narrative: Date: 05/26/17 Time: 1602 Hospital Course Summary Disclaimer: The visit summary below is not to be considered part of the above Progress Note. Hospital Course: 05/24/17 OBS Admission Patient will be admitted to the ICU under the care of Dr. Madrid. Consultations placed to Dr. Jackson for further cardiology management and recommendations. Patient was given both IV and by mouth boluses of Cardizem while in the emergency room. She will now be placed on Esmolol Drip for cardiac rate control. Monitor carefully on telemetry and obtain serial troponins 3. Patient was given Xarelto 20 milligrams by mouth 1 while in the emergency room. We will continue this daily for anticoagulation. Half-normal saline at 75 ML per hour for gentle hydration. Patient has known hyperthyroidism and underwent a thyroid ablation on April 02. TSH remains less than 0.02. May need to speak with Dr. Reinoso, patient's expeller operator. Obtain CBC, BMP and magnesium tomorrow to follow blood counts, renal function and electrolytes. At time of discharge medical care will return to primary care provider, Dr Belcher. 05/25/17 Oral propranolol started by Dr Jackson-working to wean down esmolol. Rhythm afib with rapid and variable rate. Continue Xarelto for anticoagulation. Renal status stable post IV contrast. Taking po well. Will discontinue IVF. Free T3 and T4 pending. Will place consult for Evaluation by Dr Reinoso - is scheduled to see him in about 2 weeks. Monitor BMP and Mg secondary to medications use. Will recheck CBC in am due to Xarelto use. Continue CCU care and monitoring - with persistent afib with RVR, patient not able to move to medical floor at this time. With continued need for IV drip to control rate, will change to inpatient admission status. 05/26/17 Sodium normalized at 144. Hemoglobin with decrease to 11.[address] Jackson increasing oral propranolol in attempt to wean off esmolol. PTU started by Dr Reinoso. He would not recommend attempt at cardioversion until thyroid status stabilizes. Bowels moved well post Dulcolax suppository.
--- NOTE | 2017-05-26 16:39 | Consultation ---
DATE OF CONSULT 05/26/2017 REASON FOR CONSULTATION Thyrotoxicosis. HISTORY OF PRESENT ILLNESS This 57-year-old female is followed by me as an outpatient for hyperthyroidism. She had a radioactive iodine uptake in January 2017 of 40.6%. When I saw her initially in consultation in March 2017 she was hyperthyroid with a TSH of 0.018 and free T4 of 1.71. It was decided to treat her with radioactive iodine ablation. She did receive 20.5 mCi of I-131 on 04/02/2017. She was due to have a followup visit next week with me. However, she started to develop shortness of breath and palpitations on 05/21/2017, associated with some lightheadedness. She was found to be in atrial fibrillation with a rapid ventricular response and was admitted to the CCU. Her rhythm has remained difficult to control despite using IV esmolol as well as oral beta blockade and Diltiazem. Her thyroid indices were rechecked in the hospital and she now has a TSH of less than 0.02. Free T4 6.08 and free T3 19.8. She is relatively asymptomatic, however, except for the dyspnea with exertion. ALLERGIES Penicillin. PAST MEDICAL HISTORY Arthritis. Excision of a cyst from back. Ovarian cancer. Insertion of a port for chemotherapy for her ovarian cancer in the past. MEDICATIONS Meloxicam. FAMILY HISTORY Atrial fibrillation, diabetes mellitus. SOCIAL HISTORY No tobacco or alcohol use. REVIEW OF SYSTEMS Remarkable only for palpitations, fatigue, dyspnea and two days of constipation. PHYSICAL EXAMINATION VITAL SIGNS: Blood pressure 116/62, pulse 105, respirations 17. GENERAL: Well-developed, obese female, alert, oriented and in no acute distress. HEENT: Unremarkable. NECK: Without thyromegaly. LUNGS: Clear. HEART: Irregularly irregular rhythm with rapid rate. No murmur. ABDOMEN: Normal bowel sounds. Nontender. NEUROLOGIC: No tremors. EXTREMITIES: Without edema. PSYCHIATRIC: Cooperative with normal affect and thought processes. ASSESSMENT 1. Atrial fibrillation with rapid ventricular response 2. Thyrotoxicosis. Despite a very good iodine uptake and seemingly adequate dose of radioactive iodine, she has failed to be ablated and actually is much more thyrotoxic now than prior to her iodine treatment. In order to achieve conversion to a normal sinus rhythm it will be important to correct her thyrotoxicosis as much as possible. Because of this we will need to place her on propylthiouracil and return to completing her ablation at a later date. 3. Graves' disease without eye findings. RECOMMENDATIONS Start PTU 150 mg q.6h. If possible, I would like to try to avoid using supersaturated potassium iodide solution which would further delay her ultimate radioactive iodine retreatment for ablation. Reevaluate heart rhythm and rate in 24 hours. Thank you very much for asking me to assist in caring for this nice woman. I will follow her with you while she remains in the hospital. [facility]
[2017-05-26] MEDS: RIVAROXABAN 20 MG TABLET PO SCH (17:47)
[2017-05-27] MEDS: PROPYLTHIOURACIL 50 MG TABLET PO SCH ×4 (02:38→20:23)
--- NOTE | 2017-05-27 07:56 | Endocrinology Progress Note ---
Subjective Principal diagnosis: Thyrotoxicosis Interval history: Reports less shortness of breath. Denies chest pain, dizziness. Appetite OK. Denies feeling palpitations. Exam Vital signs: Temperature 98.7 F 05/27/17 04:00 Pulse Rate 108 H 05/27/17 06:00 Respiratory Rate 32 H 05/27/17 06:00 Blood Pressure 128/63 05/27/17 06:00 Pulse Oximetry 96 05/27/17 06:00 Inpatient Medications: Generic Name Dose Route Start Last Admin Trade Name Freq PRN Reason Stop Dose Admin Acetaminophen 1,000 mg 05/24/17 11:03 Tylenol PO Q5H PRN Pain Al Hydroxide/Mg Hydroxide 30 ml 05/25/17 09:47 05/26/17 07:44 Maalox Plus PO 30 ml Q3H PRN Administration Indigestion Bisacodyl 10 mg 05/26/17 09:42 05/26/17 09:47 Dulcolax RECTALLY 10 mg DAILY PRN Administration Constipation Calcium Carbonate 500 mg 05/25/17 09:00 05/26/17 09:11 Calcium PO 500 mg DAILY CHRISTEN Administration Digoxin 250 mcg 05/25/17 17:36 05/26/17 07:40 Lanoxin IVP 250 mcg Q6H PRN Administration Diltiazem HCl 15 mg 05/24/17 18:34 Cardizem 25 Mg Inj IVP Q6H PRN Tachycardia Esmolol HCl 2,500 mg in 250 mls @ 35.88 mls/hr 05/24/17 06:27 05/26/17 19:00 Brevibloc Drip IV Infused .Q6H59M PRN Titration Protocol 50 MCG/KG/MIN Magnesium Hydroxide 30 ml 05/25/17 11:01 05/26/17 04:06 Mom PO 30 ml DAILY PRN Administration Constipation Magnesium Oxide 400 mg 05/24/17 21:00 05/26/17 20:07 Magox PO 400 mg BID CHRISTEN Administration Multivitamins 1 tab 05/25/17 09:00 05/26/17 09:11 Theragran PO 1 tab DAILY CHRISTEN Administration Propranolol HCl 360 mg 05/26/17 13:29 Inderal La PO DAILY CHRISTEN Propylthiouracil 150 mg 05/26/17 09:00 05/27/17 02:38 Ptu PO 150 mg Q6HR CHRISTEN Administration Rivaroxaban 20 mg 05/24/17 17:30 05/26/17 17:47 Xarelto PO 20 mg WS CHRISTEN Administration Sodium Chloride 10 - 80 ml 05/24/17 06:11 05/26/17 07:40 Iv Flush IVF 10 ml PRN PRN Administration Flushing Discontinued Medications Generic Name Dose Route Start Last Admin Trade Name Freq PRN Reason Stop Dose Admin Diltiazem HCl 20 mg 05/24/17 06:11 05/24/17 06:11 Cardizem 25 Mg Inj IVP 05/24/17 06:12 20 mg O ONE Administration Diltiazem HCl 30 mg 05/24/17 09:04 05/24/17 09:59 Cardizem Ir 30 Mg Tab PO 05/24/17 09:05 30 mg O ONE Administration Diphenhydramine HCl 50 mg 05/24/17 06:52 05/24/17 07:21 Benadryl IVP 05/24/17 06:53 50 mg O ONE Administration Sodium Chloride 1,000 mls @ 1,000 mls/hr 05/24/17 06:11 05/24/17 07:33 Normal Saline IV 05/24/17 07:10 Infused .Q1H ONE Infusion Diltiazem HCl 125 mg/ Sodium 125 mls @ 5 mls/hr 05/24/17 06:30 05/24/17 15:44 Chloride IV Not Given .Q24H CHRISTEN Protocol Sodium Chloride 1,000 mls @ 75 mls/hr 05/24/17 11:03 05/25/17 10:46 1/2 Normal Saline IV Infused .[id number] CHRISTEN Infusion Non-Formulary Medication 550 mg 05/25/17 09:00 Potassium Gluconate [Potassium Gluconate] PO DAILY CHRISTEN Propranolol HCl 120 mg 05/24/17 19:00 05/25/17 09:10 Inderal La PO 05/25/17 21:01 120 mg BID CHRISTEN Administration Propranolol HCl 160 mg 05/26/17 09:00 Inderal La PO DAILY CHRISTEN Propranolol HCl 120 mg 05/25/17 11:55 05/25/17 13:51 Inderal La PO 05/25/17 11:56 120 mg O ONE Administration Propranolol HCl 240 mg 05/26/17 09:00 05/26/17 09:10 Inderal La PO 240 mg DAILY CHRISTEN Administration Propranolol HCl 120 mg 05/26/17 13:45 05/26/17 13:59 Inderal La PO 05/26/17 13:46 120 mg O ONE Administration Rivaroxaban 20 mg 05/24/17 09:04 05/24/17 09:59 Xarelto PO 05/24/17 09:05 20 mg O ONE Administration - Constitutional no acute distress - Routine HEENT Exam Head: Present: normocephalic, atraumatic Eye: Present: PERRL - Routine Neck Exam Absent: thyromegaly - Routine Respiratory Exam Absent: rales, wheezes - Routine Cardiovascular Exam Present: irregularly irregular - Routine Abdominal Exam Present: normoactive bowel sounds Assessment and Plan (1) Hyperthyroidism Problem details: Due to Graves' disease. Current visit: Yes Status: Chronic On PTU her RVR has improved a little, but is not yet controlled. Will continue full dose PTU and recheck FT4 tomorrow morning.
[2017-05-27] MEDS: MULTI-VITAMIN PLAIN TABLET PO SCH (09:27)
[2017-05-27] MEDS: PROPRANOLOL LA 120 MG CAPSULE PO SCH (09:27)
[2017-05-27] MEDS: MAGNESIUM OXIDE 400 MG TABLET PO SCH ×2 (09:27→20:23)
[2017-05-27] MEDS: CALCIUM CARBONATE 500 MG TABLET PO SCH (09:27)
--- NOTE | 2017-05-27 10:16 | Progress Note ---
- Date 05/27/17 Subjective: F/U: Afib with RVR Doing okay this am. Slept well. Not having ab pain or fullness, bowels moving and eating well. No chest pressure or heaviness. Notes some palpitations when up and moving. Is able to be up and move more. Breathing well-not SOA or congested. Objective Vital signs: Temperature 98.7 F 05/27/17 04:00 Pulse Rate 87 05/27/17 09:07 Respiratory Rate 32 H 05/27/17 06:00 Blood Pressure 128/63 05/27/17 06:00 Pulse Oximetry 96 05/27/17 06:00 Rhythm: Atrial Fibrillation with RVR Height/Weight/BMI: Weight 121.1 kg - Constitutional Present: well nourished, well developed, morbidly obese, cooperative - Routine HEENT Exam Head: Present: normocephalic, atraumatic Eye: Present: EOMI, PERRL ENT: Present: mucous membranes moist - Routine Respiratory Exam Present: CTA bilaterally. Absent: rales, respiratory distress, rhonchi, wheezes - Routine Cardiovascular Exam Present: no murmur, irregularly irregular - Routine Abdominal Exam Present: soft, normoactive bowel sounds, non distended, non tender - Routine Extremities Exam Present: edema (+2). Absent: cyanosis, clubbing - Routine Musculoskeletal Exam Musculoskeletal: Present: no clubbing or cyanosis, normal strength - Routine Skin Exam Present: intact, dry, warm - Routine Neurological Exam Present: alert, oriented X3, CN II-XII intact, moving all extremities, vision grossly intact, hearing grossly intact, normal speech. Absent: motor deficit, altered mental status - Routine Psychiatric Exam Present: normal affect, normal thought process, cooperative. Absent: anxious, agitated Results - Labs CBC & Chem 7: 05/26/17 04:52 05/26/17 04:52 Assessment and Plan (1) Atrial fibrillation with RVR Current visit: Yes Status: Acute Assessment and Plan: Impression New-onset atrial fibrillation with rapid ventricular rate Hypernatremia (POA) - resolved Graves' disease Constipation Morbid obesity History of ovarian cancer Plan Heart rate improving - able to be weaned off esmolol yesterday evening. Continues on Propranolol LA 360mg daily -- Has had 2 doses of IV Digoxin 0.25mg (available prn for total of [address] doses). Dr Reinoso recommending Free T4 tomorrow to help assess PTU effect. Encourage increasing activities. Will transfer to floor for continuation of care. Case discussed with CCU nursing. Time spent with patient care 25 minutes. DVT Prophylaxis: Xarelto Resuscitation Status: Full Code - Time spent with patient Time with patient PN: 25 minutes - Physician Narrative Physician: Osvaldo Madrid MD Narrative: Date: 05/27/17 Time: 1013 Hospital Course Summary Disclaimer: The visit summary below is not to be considered part of the above Progress Note. Hospital Course: 05/24/17 OBS Admission Patient will be admitted to the ICU under the care of Dr. Madrid. Consultations placed to Dr. Jackson for further cardiology management and recommendations. Patient was given both IV and by mouth boluses of Cardizem while in the emergency room. She will now be placed on Esmolol Drip for cardiac rate control. Monitor carefully on telemetry and obtain serial troponins 3. Patient was given Xarelto 20 milligrams by mouth 1 while in the emergency room. We will continue this daily for anticoagulation. Half-normal saline at 75 ML per hour for gentle hydration. Patient has known hyperthyroidism and underwent a thyroid ablation on April 02. TSH remains less than 0.02. May need to speak with Dr. Reinoso, patient's inventory control supervisor. Obtain CBC, BMP and magnesium tomorrow to follow blood counts, renal function and electrolytes. At time of discharge medical care will return to primary care provider, Dr Belcher. 05/25/17 Oral propranolol started by Dr Jackson-working to wean down esmolol. Rhythm afib with rapid and variable rate. Continue Xarelto for anticoagulation. Renal status stable post IV contrast. Taking po well. Will discontinue IVF. Free T3 and T4 pending. Will place consult for Evaluation by Dr Reinoso - is scheduled to see him in about 2 weeks. Monitor BMP and Mg secondary to medications use. Will recheck CBC in am due to Xarelto use. Continue CCU care and monitoring - with persistent afib with RVR, patient not able to move to medical floor at this time. With continued need for IV drip to control rate, will change to inpatient admission status. 05/26/17 Sodium normalized at 144. Hemoglobin with decrease to 11.[address] Jackson increasing oral propranolol in attempt to wean off esmolol. PTU started by Dr Reinoso. He would not recommend attempt at cardioversion until thyroid status stabilizes. Bowels moved well post Dulcolax suppository. 05/27/17 Heart rate improving - able to be weaned off esmolol yesterday evening. Continues on Propranolol LA 360mg daily -- Has had 2 doses of IV Digoxin 0.25mg (available prn for total of [address] doses). Dr Reinoso recommending Free T4 tomorrow to help assess PTU effect. Encourage increasing activities. Will transfer to floor for continuation of care.
--- NOTE | 2017-05-27 11:43 | Cardiology Progress Note ---
Subjective Principal diagnosis: Thyrotoxicosis Interval history: Loreto is feeling better today. less soa .Has walked in the unit felt a bit SOA but no dizziness cp or severe dyspnea. no palpitations. she s weaned off Esmolol gtt . seen by Dr Reinoso and started on PTU. tele afib 100's-110's . 110-120's w activity per RN. Exam Vital signs: Temperature 98.2 F 05/27/17 08:00 Pulse Rate 103 H 05/27/17 11:38 Respiratory Rate 25 H 05/27/17 10:30 Blood Pressure 128/63 05/27/17 10:00 Pulse Oximetry 94 05/27/17 10:30 Inpatient Medications: Generic Name Dose Route Start Last Admin Trade Name Freq PRN Reason Stop Dose Admin Acetaminophen 1,000 mg 05/24/17 11:03 Tylenol PO Q5H PRN Pain Al Hydroxide/Mg Hydroxide 30 ml 05/25/17 09:47 05/26/17 07:44 Maalox Plus PO 30 ml Q3H PRN Administration Indigestion Bisacodyl 10 mg 05/26/17 09:42 05/26/17 09:47 Dulcolax RECTALLY 10 mg DAILY PRN Administration Constipation Calcium Carbonate 500 mg 05/25/17 09:00 05/27/17 09:27 Calcium PO 500 mg DAILY CHRISTEN Administration Digoxin 250 mcg 05/25/17 17:36 05/26/17 07:40 Lanoxin IVP 250 mcg Q6H PRN Administration Diltiazem HCl 15 mg 05/24/17 18:34 Cardizem 25 Mg Inj IVP Q6H PRN Tachycardia Esmolol HCl 2,500 mg in 250 mls @ 35.88 mls/hr 05/24/17 06:27 05/26/17 19:00 Brevibloc Drip IV Infused .Q6H59M PRN Titration Protocol 50 MCG/KG/MIN Magnesium Hydroxide 30 ml 05/25/17 11:01 05/26/17 04:06 Mom PO 30 ml DAILY PRN Administration Constipation Magnesium Oxide 400 mg 05/24/17 21:00 05/27/17 09:27 Magox PO 400 mg BID CHRISTEN Administration Multivitamins 1 tab 05/25/17 09:00 05/27/17 09:27 Theragran PO 1 tab DAILY CHRISTEN Administration Propranolol HCl 360 mg 05/26/17 13:29 05/27/17 09:27 Inderal La PO 360 mg DAILY CHRISTEN Administration Propylthiouracil 150 mg 05/26/17 09:00 05/27/17 09:27 Ptu PO 150 mg Q6HR CHRISTEN Administration Rivaroxaban 20 mg 05/24/17 17:30 05/26/17 17:47 Xarelto PO 20 mg WS CHRISTEN Administration Sodium Chloride 10 - 80 ml 05/24/17 06:11 05/26/17 07:40 Iv Flush IVF 10 ml PRN PRN Administration Flushing Discontinued Medications Generic Name Dose Route Start Last Admin Trade Name Freq PRN Reason Stop Dose Admin Diltiazem HCl 20 mg 05/24/17 06:11 05/24/17 06:11 Cardizem 25 Mg Inj IVP 05/24/17 06:12 20 mg O ONE Administration Diltiazem HCl 30 mg 05/24/17 09:04 05/24/17 09:59 Cardizem Ir 30 Mg Tab PO 05/24/17 09:05 30 mg O ONE Administration Diphenhydramine HCl 50 mg 05/24/17 06:52 05/24/17 07:21 Benadryl IVP 05/24/17 06:53 50 mg O ONE Administration Sodium Chloride 1,000 mls @ 1,000 mls/hr 05/24/17 06:11 05/24/17 07:33 Normal Saline IV 05/24/17 07:10 Infused .Q1H ONE Infusion Diltiazem HCl 125 mg/ Sodium 125 mls @ 5 mls/hr 05/24/17 06:30 05/24/17 15:44 Chloride IV Not Given .Q24H CHRISTEN Protocol Sodium Chloride 1,000 mls @ 75 mls/hr 05/24/17 11:03 05/25/17 10:46 1/2 Normal Saline IV Infused .[id number] CHRISTEN Infusion Non-Formulary Medication 550 mg 05/25/17 09:00 Potassium Gluconate [Potassium Gluconate] PO DAILY CHRISTEN Propranolol HCl 120 mg 05/24/17 19:00 05/25/17 09:10 Inderal La PO 05/25/17 21:01 120 mg BID CHRISTEN Administration Propranolol HCl 160 mg 05/26/17 09:00 Inderal La PO DAILY CHRISTEN Propranolol HCl 120 mg 05/25/17 11:55 05/25/17 13:51 Inderal La PO 05/25/17 11:56 120 mg O ONE Administration Propranolol HCl 240 mg 05/26/17 09:00 05/26/17 09:10 Inderal La PO 240 mg DAILY CHRISTEN Administration Propranolol HCl 120 mg 05/26/17 13:45 05/26/17 13:59 Inderal La PO 05/26/17 13:46 120 mg O ONE Administration Rivaroxaban 20 mg 05/24/17 09:04 05/24/17 09:59 Xarelto PO 05/24/17 09:05 20 mg O ONE Administration - Constitutional no acute distress, morbidly obese - Routine HEENT Exam Head: Present: normocephalic, atraumatic Eye: Present: EOMI, PERRL ENT: Present: mucous membranes moist - Routine Neck Exam Present: normal carotid upstroke. Absent: JVD, carotid bruit, lymphadenopathy - Routine Respiratory Exam Present: CTA bilaterally - Routine Cardiovascular Exam Present: no murmur, irregularly irregular. Absent: JVD - Routine Abdominal Exam Present: soft, normoactive bowel sounds, non distended, non tender - Routine Extremities Exam Present: edema (trace B. ankles). Absent: cyanosis, clubbing - Routine Skin Exam Present: intact. Absent: cyanosis, erythema - Routine Neurological Exam Present: alert, oriented X3, CN II-XII intact, moving all extremities, vision grossly intact, normal speech. Absent: motor deficit, hearing grossly intact, hemineglect, facial asymmetry - Routine Psychiatric Exam Present: normal affect, cooperative. Absent: depressed, anxious Results 05/26/17 04:52 05/26/17 04:52 Intake and Output 05/26/17 05/27/17 05/27/17 22:59 06:59 14:59 Intake Total 957.945 / 957.945 240 / 240 240 / 240 Output Total 1300 / 1300 1100 / 1100 600 / 600 Balance -342.055 / -342.055 -860 / -860 -360 / -360 Intake: IV 237.945 / 237.945 Esmolol Drip 2,500 mg In 250 ml 237.945 / 237.945 @ 50 MCG/KG/MIN 35.88 mls/hr IV .Q6H59M PRN Rx#:[id number] Oral 720 / 720 240 / 240 240 / 240 Output: Urine 1300 / 1300 1100 / 1100 600 / 600 Other: Urine Appearance Clear Clear Urine Color Yellow Yellow Stool Color Brown Brown Stool Consistency Loose Soft Formed Liquid Size of Bowel Movement Moderate Moderate # Voids 1 # Bowel Movements 1 1 - EKG Interpretation EKG shows: atrial fibrillation Assessment and Plan - Attestation Attestation Narrative: 05/27/17 11:44 Symptomatic New Onset atrial fibrillation with RVR, of a duration expected to be about or greater than 72 hours chads 2 vasc score at least one Hyperthyroidism status post radioactive iodine ablation March 2017, still with a suppressed TSH, free T4 T3 recheck per Endo Morbid obesity with history of loud snoring and suspected obstructive sleep apnea hyperglycemia continue Rate control and anticoagulation no cardioversion at this time. rate control is acceptable. I'm hesitant to push for strict rate control while PTU is just started. continue high dose BB increase activity looks stable for transfer to floor d/w DR Osorio and RN Hospital Course Summary Disclaimer: The visit summary below is not to be considered part of the above Progress Note. Hospital Course: Impression New-onset atrial fibrillation with rapid ventricular rate Hypernatremia-present on admission Graves' disease Morbid obesity History of ovarian cancer Plan Patient will be admitted to the ICU under the care of Dr. Madrid. Consultations placed to Dr. Jackson for further cardiology management and recommendations. Patient was given both IV and by mouth boluses of Cardizem while in the emergency room. She will now be placed on Esmolol Drip for cardiac rate control Monitor carefully on telemetry and obtain serial troponins 3 Patient was given Xarelto 20 milligrams by mouth 1 while in the emergency room. We will continue this daily for anticoagulation Half-normal saline at 75 ML per hour for gentle hydration Patient has known hyperthyroidism and underwent a thyroid ablation on April 02. TSH remains less than 0.02. May need to speak with Dr. Reinoso, patient's construction laborer. Obtain CBC, BMP and magnesium tomorrow to follow blood counts, renal function and electrolytes Will discuss further orders and plan of care with attending, Dr. Madrid At time of discharge medical care will return to primary care provider, Dr Belcher
[2017-05-27] MEDS: RIVAROXABAN 20 MG TABLET PO SCH (17:32)
[2017-05-28] MEDS: SALINE FLUSH 10ml SYRINGE IVF PRN (02:06)
[2017-05-28] MEDS: PROPYLTHIOURACIL 50 MG TABLET PO SCH ×3 (02:06→14:12)
[2017-05-28 04:31] VITALS: RESP 20
--- NOTE | 2017-05-28 07:44 | Endocrinology Progress Note ---
Subjective Principal diagnosis: Thyrotoxicosis Interval history: Has no shortness of breath. Denies chest pain, dizziness. Appetite OK. Denies feeling palpitations. Exam Vital signs: Temperature 97.9 F 05/28/17 04:30 Pulse Rate 93 05/28/17 04:30 Respiratory Rate 20 05/28/17 04:30 Blood Pressure 137/69 05/28/17 04:30 Pulse Oximetry 94 05/28/17 04:30 Inpatient Medications: Generic Name Dose Route Start Last Admin Trade Name Freq PRN Reason Stop Dose Admin Acetaminophen 1,000 mg 05/24/17 11:03 Tylenol PO Q5H PRN Pain Al Hydroxide/Mg Hydroxide 30 ml 05/25/17 09:47 05/26/17 07:44 Maalox Plus PO 30 ml Q3H PRN Administration Indigestion Bisacodyl 10 mg 05/26/17 09:42 05/26/17 09:47 Dulcolax RECTALLY 10 mg DAILY PRN Administration Constipation Calcium Carbonate 500 mg 05/25/17 09:00 05/27/17 09:27 Calcium PO 500 mg DAILY CHRISTEN Administration Digoxin 250 mcg 05/25/17 17:36 05/26/17 07:40 Lanoxin IVP 250 mcg Q6H PRN Administration Diltiazem HCl 15 mg 05/24/17 18:34 Cardizem 25 Mg Inj IVP Q6H PRN Tachycardia Magnesium Hydroxide 30 ml 05/25/17 11:01 05/26/17 04:06 Mom PO 30 ml DAILY PRN Administration Constipation Magnesium Oxide 400 mg 05/24/17 21:00 05/27/17 20:23 Magox PO 400 mg BID CHRISTEN Administration Multivitamins 1 tab 05/25/17 09:00 05/27/17 09:27 Theragran PO 1 tab DAILY CHRISTEN Administration Propranolol HCl 360 mg 05/26/17 13:29 05/27/17 09:27 Inderal La PO 360 mg DAILY CHRISTEN Administration Propylthiouracil 150 mg 05/26/17 09:00 05/28/17 02:06 Ptu PO 150 mg Q6HR CHRISTEN Administration Rivaroxaban 20 mg 05/24/17 17:30 05/27/17 17:32 Xarelto PO 20 mg WS CHRISTEN Administration Sodium Chloride 10 - 80 ml 05/24/17 06:11 05/28/17 02:06 Iv Flush IVF 10 ml PRN PRN Administration Flushing Discontinued Medications Generic Name Dose Route Start Last Admin Trade Name Freq PRN Reason Stop Dose Admin Diltiazem HCl 20 mg 05/24/17 06:11 05/24/17 06:11 Cardizem 25 Mg Inj IVP 05/24/17 06:12 20 mg O ONE Administration Diltiazem HCl 30 mg 05/24/17 09:04 05/24/17 09:59 Cardizem Ir 30 Mg Tab PO 05/24/17 09:05 30 mg O ONE Administration Diphenhydramine HCl 50 mg 05/24/17 06:52 05/24/17 07:21 Benadryl IVP 05/24/17 06:53 50 mg O ONE Administration Sodium Chloride 1,000 mls @ 1,000 mls/hr 05/24/17 06:11 05/24/17 07:33 Normal Saline IV 05/24/17 07:10 Infused .Q1H ONE Infusion Diltiazem HCl 125 mg/ Sodium 125 mls @ 5 mls/hr 05/24/17 06:30 05/24/17 15:44 Chloride IV Not Given .Q24H CHRISTEN Protocol Esmolol HCl 2,500 mg in 250 mls @ 35.88 mls/hr 05/24/17 06:27 05/26/17 19:00 Brevibloc Drip IV Infused .Q6H59M PRN Titration Protocol 50 MCG/KG/MIN Sodium Chloride 1,000 mls @ 75 mls/hr 05/24/17 11:03 05/25/17 10:46 1/2 Normal Saline IV Infused .[id number] CHRISTEN Infusion Non-Formulary Medication 550 mg 05/25/17 09:00 Potassium Gluconate [Potassium Gluconate] PO DAILY CHRISTEN Propranolol HCl 120 mg 05/24/17 19:00 05/25/17 09:10 Inderal La PO 05/25/17 21:01 120 mg BID CHRISTEN Administration Propranolol HCl 160 mg 05/26/17 09:00 Inderal La PO DAILY CHRISTEN Propranolol HCl 120 mg 05/25/17 11:55 05/25/17 13:51 Inderal La PO 05/25/17 11:56 120 mg O ONE Administration Propranolol HCl 240 mg 05/26/17 09:00 05/26/17 09:10 Inderal La PO 240 mg DAILY CHRISTEN Administration Propranolol HCl 120 mg 05/26/17 13:45 05/26/17 13:59 Inderal La PO 05/26/17 13:46 120 mg O ONE Administration Rivaroxaban 20 mg 05/24/17 09:04 05/24/17 09:59 Xarelto PO 05/24/17 09:05 20 mg O ONE Administration - Constitutional no acute distress - Routine HEENT Exam Head: Present: normocephalic, atraumatic Eye: Present: PERRL ENT: Present: mucous membranes moist - Routine Neck Exam Absent: thyromegaly - Routine Respiratory Exam Absent: dyspnea - Routine Cardiovascular Exam Present: irregularly irregular - Routine Abdominal Exam Present: normoactive bowel sounds - Routine Extremities Exam Absent: edema - Routine Skin Exam Present: dry, warm - Routine Neurological Exam Present: alert, oriented X3, moving all extremities - Routine Psychiatric Exam Present: normal affect, normal thought process, good insight, good judgment - Additional findings Additional findings: Laboratory Tests 05/24/17 05/28/17 06:10 04:12 Free T4 6.08 H 6.09 H Assessment and Plan (1) Hyperthyroidism Problem details: Due to Graves' disease. Current visit: Yes Status: Chronic There has been virtually no movement in FT4 after 48 hours of PTU. At this point SSKI can be administered to further reduce iodine trapping by the thyroid and to block peripheral conversion of T4 to T3. In this fashion we should be able to achieve normal thyroid levels in a matter of days instead of several weeks. Currently however she is still too thyrotoxic to try cardioversion, as she would likely revert into atrial fibrillation even if initially converted back into sinus rhythm.
[2017-05-28] MEDS: PROPRANOLOL LA 120 MG CAPSULE PO SCH (09:33)
[2017-05-28] MEDS: MAGNESIUM OXIDE 400 MG TABLET PO SCH (09:33)
[2017-05-28] MEDS: MULTI-VITAMIN PLAIN TABLET PO SCH (09:33)
[2017-05-28] MEDS: CALCIUM CARBONATE 500 MG TABLET PO SCH (09:33)
--- NOTE | 2017-05-28 11:07 | Progress Note ---
- Date 05/28/17 Subjective: F/U: Afib with RVR Doing well this morning. Moving more-not feeling dizzy or unsteady with positional changes. No chest pain. Eating well. No ab pain. Urinating well. Objective Vital signs: Temperature 97.7 F 05/28/17 08:03 Pulse Rate 87 05/28/17 08:06 Respiratory Rate 20 05/28/17 08:03 Blood Pressure 150/80 H 05/28/17 08:06 Pulse Oximetry 95 05/28/17 08:06 Height/Weight/BMI: Weight 118.2 kg - Constitutional Present: well nourished, well developed, morbidly obese, cooperative - Routine HEENT Exam Head: Present: normocephalic, atraumatic Eye: Present: EOMI, PERRL ENT: Present: mucous membranes moist - Routine Respiratory Exam Present: CTA bilaterally. Absent: rales, respiratory distress, rhonchi, stridor , wheezes, crackles - Routine Cardiovascular Exam Present: no murmur, irregularly irregular - Routine Abdominal Exam Present: soft, normoactive bowel sounds, non distended, non tender - Routine Extremities Exam Present: edema (+1 BLE). Absent: cyanosis, clubbing - Routine Musculoskeletal Exam Musculoskeletal: Present: no clubbing or cyanosis, normal strength - Routine Skin Exam Present: dry, warm - Routine Neurological Exam Present: alert, oriented X3, CN II-XII intact, moving all extremities, vision grossly intact, hearing grossly intact, normal speech. Absent: motor deficit, altered mental status - Routine Psychiatric Exam Present: normal affect, normal thought process, cooperative Results - Labs CBC & Chem 7: 05/28/17 04:12 05/28/17 04:12 Assessment and Plan (1) Atrial fibrillation with RVR Current visit: Yes Status: Acute Assessment and Plan: Impression New-onset atrial fibrillation with rapid ventricular rate Hypernatremia (POA) - resolved Graves' disease Constipation Morbid obesity History of ovarian cancer Plan HR improving with Propranolol. BP stable and patient not orthostatic. Ambulating well. Continues on Propranolol LA 360mg daily -- Has had 2 doses of IV Digoxin 0.25mg (available prn for total of 4 doses). Free T4 without change at 6.09. Dr Reinoso recommending continuing PTU. Will give oral potassium as level decreased to 3.4 this am. Continue with supportive care - possible discharge soon. Evening recheck Doing well. No new problems. Ambulating well. HR stable. Tolerating medications. Dr Jackson evaluated patient and feels is medically stable to go home. Will discharge to home. May return to work on Friday06/02/17. Medication changes: Xarelto 20mg daily with supper for anticoagulation. Propranolol 360md daily for heart rate control. PTU 150mg q 6 hours due to hyperthyroidism. Stop Mobic secondary to Xarelto use to decrease risk of GI bleeding. Will need weekly Free T4 to evaluate PTU effect. F/U with Dr Belcher in 1 week for medical evaluation F/U with Dr Jackson: 06/04/17 Holter monitor [address] Jackson's office in [place] 06/09/[address] Jackson's office in [place] 06/11/17 Follow up for all of these appointments at 2:[address] Jackson's office in [place] F/U with Dr Reinoso in 1-2 weeks for endocrine evaluation. See orders for details. Case discussed with CM. Time spent with patient care and discharge greater than 30 minutes. DVT Prophylaxis: Xarelto Resuscitation Status: Full Code - Time spent with patient Time with patient PN: 25 minutes - Physician Narrative Physician: sOvaldo Madrid MD Narrative: Date: 05/28/17 Time: 1104 Hospital Course Summary Disclaimer: The visit summary below is not to be considered part of the above Progress Note. Hospital Course: 05/24/17 OBS Admission Patient will be admitted to the ICU under the care of Dr. Madrid. Consultations placed to Dr. Jackson for further cardiology management and recommendations. Patient was given both IV and by mouth boluses of Cardizem while in the emergency room. She will now be placed on Esmolol Drip for cardiac rate control. Monitor carefully on telemetry and obtain serial troponins 3. Patient was given Xarelto 20 milligrams by mouth 1 while in the emergency room. We will continue this daily for anticoagulation. Half-normal saline at 75 ML per hour for gentle hydration. Patient has known hyperthyroidism and underwent a thyroid ablation on April 02. TSH remains less than 0.02. May need to speak with Dr. 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 Obtain CBC, BMP and magnesium tomorrow to follow blood counts, renal function and electrolytes. At time of discharge medical care will return to primary care provider, Dr Belcher. 05/25/17 Oral propranolol started by Dr Jackson-working to wean down esmolol. Rhythm afib with rapid and variable rate. Continue Xarelto for anticoagulation. Renal status stable post IV contrast. Taking po well. Will discontinue IVF. Free T3 and T4 pending. Will place consult for Evaluation by Dr Reinoso - is scheduled to see him in about 2 weeks. Monitor BMP and Mg secondary to medications use. Will recheck CBC in am due to Xarelto use. Continue CCU care and monitoring - with persistent afib with RVR, patient not able to move to medical floor at this time. With continued need for IV drip to control rate, will change to inpatient admission status. 05/26/17 Sodium normalized at 144. Hemoglobin with decrease to 11.[address] Jackson increasing oral propranolol in attempt to wean off esmolol. PTU started by Dr Reinoso. He would not recommend attempt at cardioversion until thyroid status stabilizes. Bowels moved well post Dulcolax suppository. 05/27/17 Heart rate improving - able to be weaned off esmolol yesterday evening. Continues on Propranolol LA 360mg daily -- Has had 2 doses of IV Digoxin 0.25mg (available prn for total of [address] doses). Dr Reinoso recommending Free T4 tomorrow to help assess PTU effect. Encourage increasing activities. Will transfer to floor for continuation of care. 05/28/17 - - Discharge HR improving with Propranolol. BP stable and patient not orthostatic. Ambulating well. Continues on Propranolol LA 360mg daily -- Has had 2 doses of IV Digoxin 0.25mg (available prn for total of 4 doses). Free T4 without change at 6.09. Dr Reinoso recommending continuing PTU. Will give oral potassium as level decreased to 3.4 this am. Evening recheck Doing well. No new problems. Ambulating well. HR stable. Tolerating medications. Dr Jackson evaluated patient and feels is medically stable to go home. Will discharge to home. May return to work on Friday06/02/17. Medication changes: Xarelto 20mg daily with supper for anticoagulation. Propranolol 360md daily for heart rate control. PTU 150mg q 6 hours due to hyperthyroidism. Stop Mobic secondary to Xarelto use to decrease risk of GI bleeding. Will need weekly Free T4 to evaluate PTU effect. F/U with Dr Belcher in 1 week for medical evaluation F/U with Dr Jackson: 06/04/17 Holter monitor [address] Jackson's office in [place] 06/09/[address] Jackson's office in [place] 06/11/17 Follow up for all of these appointments at 2:[address] Jackson's office in [place] F/U with Dr Reinoso in 1-2 weeks for endocrine evaluation. See orders for details.
[2017-05-28 15:17] VITALS: BP 114/68; TEMP 98.3; O2SAT 97
[2017-05-28 16:56] VITALS: PULSE 96
[2017-05-28] MEDS: RIVAROXABAN 20 MG TABLET PO SCH (16:58)
--- NOTE | 2017-05-28 19:03 | Cardiology Progress Note ---
Subjective Principal diagnosis: a fib Interval history: Loreto is feeling better today. much less soa and did well with taking a shower and felt energetic, no dizziness cp or severe dyspnea. no palpitations. she s seen by Dr Reinoso getting Rx with PTU. FT4 three time upper normal. asking about going home and returning to work. dw Dr Costa and i think Friday s reasonable. she ll be getting weekly blood work with Dr Reinoso and f/u cardiac tests and visit with me (dates give to RN by my office, see D/C instructions) tele afib 90's wide complex irregular nonsustained rhythm more c/w a fib with aberrant conductio rather than NSVT. K+ low supplement per 1ry service. Exam Vital signs: Temperature 98.3 F 05/28/17 15:15 Pulse Rate 96 05/28/17 16:02 Respiratory Rate 20 05/28/17 15:15 Blood Pressure 114/68 05/28/17 15:15 Pulse Oximetry 97 05/28/17 15:15 Inpatient Medications: Generic Name Dose Route Start Last Admin Trade Name Freq PRN Reason Stop Dose Admin Acetaminophen 1,000 mg 05/24/17 11:03 Tylenol PO Q5H PRN Pain Al Hydroxide/Mg Hydroxide 30 ml 05/25/17 09:47 05/26/17 07:44 Maalox Plus PO 30 ml Q3H PRN Administration Indigestion Bisacodyl 10 mg 05/26/17 09:42 05/26/17 09:47 Dulcolax RECTALLY 10 mg DAILY PRN Administration Constipation Calcium Carbonate 500 mg 05/25/17 09:00 05/28/17 09:33 Calcium PO 500 mg DAILY CHRISTEN Administration Digoxin 250 mcg 05/25/17 17:36 05/26/17 07:40 Lanoxin IVP 250 mcg Q6H PRN Administration Diltiazem HCl 15 mg 05/24/17 18:34 Cardizem 25 Mg Inj IVP Q6H PRN Tachycardia Magnesium Hydroxide 30 ml 05/25/17 11:01 05/26/17 04:06 Mom PO 30 ml DAILY PRN Administration Constipation Magnesium Oxide 400 mg 05/24/17 21:00 05/28/17 09:33 Magox PO 400 mg BID CHRISTEN Administration Multivitamins 1 tab 05/25/17 09:00 05/28/17 09:33 Theragran PO 1 tab DAILY CHRISTEN Administration Propranolol HCl 360 mg 05/26/17 13:29 05/28/17 09:33 Inderal La PO 360 mg DAILY CHRISTEN Administration Propylthiouracil 150 mg 05/26/17 09:00 05/28/17 14:12 Ptu PO 150 mg Q6HR CHRISTEN Administration Rivaroxaban 20 mg 05/24/17 17:30 05/28/17 16:58 Xarelto PO 20 mg WS CHRISTEN Administration Sodium Chloride 10 - 80 ml 05/24/17 06:11 05/28/17 02:06 Iv Flush IVF 10 ml PRN PRN Administration Flushing Discontinued Medications Generic Name Dose Route Start Last Admin Trade Name Freq PRN Reason Stop Dose Admin Diltiazem HCl 20 mg 05/24/17 06:11 05/24/17 06:11 Cardizem 25 Mg Inj IVP 05/24/17 06:12 20 mg O ONE Administration Diltiazem HCl 30 mg 05/24/17 09:04 05/24/17 09:59 Cardizem Ir 30 Mg Tab PO 05/24/17 09:05 30 mg O ONE Administration Diphenhydramine HCl 50 mg 05/24/17 06:52 05/24/17 07:21 Benadryl IVP 05/24/17 06:53 50 mg O ONE Administration Sodium Chloride 1,000 mls @ 1,000 mls/hr 05/24/17 06:11 05/24/17 07:33 Normal Saline IV 05/24/17 07:10 Infused .Q1H ONE Infusion Diltiazem HCl 125 mg/ Sodium 125 mls @ 5 mls/hr 05/24/17 06:30 05/24/17 15:44 Chloride IV Not Given .Q24H CHRISTEN Protocol Esmolol HCl 2,500 mg in 250 mls @ 35.88 mls/hr 05/24/17 06:27 05/26/17 19:00 Brevibloc Drip IV Infused .Q6H59M PRN Titration Protocol 50 MCG/KG/MIN Sodium Chloride 1,000 mls @ 75 mls/hr 05/24/17 11:03 05/25/17 10:46 1/2 Normal Saline IV Infused .[id number] CHRISTEN Infusion Non-Formulary Medication 550 mg 05/25/17 09:00 Potassium Gluconate [Potassium Gluconate] PO DAILY CHRISTEN Potassium Chloride 20 meq 05/28/17 12:30 05/28/17 13:04 Micro-K 10 Meq Capsule PO 05/28/17 12:31 20 meq O ONE Administration Propranolol HCl 120 mg 05/24/17 19:00 05/25/17 09:10 Inderal La PO 05/25/17 21:01 120 mg BID CHRISTEN Administration Propranolol HCl 160 mg 05/26/17 09:00 Inderal La PO DAILY CHRISTEN Propranolol HCl 120 mg 05/25/17 11:55 05/25/17 13:51 Inderal La PO 05/25/17 11:56 120 mg O ONE Administration Propranolol HCl 240 mg 05/26/17 09:00 05/26/17 09:10 Inderal La PO 240 mg DAILY CHRISTEN Administration Propranolol HCl 120 mg 05/26/17 13:45 05/26/17 13:59 Inderal La PO 05/26/17 13:46 120 mg O ONE Administration Rivaroxaban 20 mg 05/24/17 09:04 05/24/17 09:59 Xarelto PO 05/24/17 09:05 20 mg O ONE Administration - Constitutional no acute distress - Routine HEENT Exam Head: Present: normocephalic, atraumatic Eye: Present: EOMI, PERRL ENT: Present: mucous membranes moist - Routine Neck Exam Present: normal carotid upstroke. Absent: JVD, carotid bruit, lymphadenopathy - Routine Respiratory Exam Present: CTA bilaterally - Routine Cardiovascular Exam Present: no murmur, irregularly irregular. Absent: murmur, JVD - Routine Abdominal Exam Present: soft, normoactive bowel sounds, non distended, non tender. Absent: organomegaly - Routine Extremities Exam Present: edema (trace in B ankles). Absent: cyanosis, clubbing - Routine Skin Exam Present: intact. Absent: cyanosis, erythema - Routine Neurological Exam Present: alert, oriented X3, CN II-XII intact, moving all extremities, vision grossly intact, normal speech. Absent: motor deficit, hearing grossly intact, hemineglect, facial asymmetry - Routine Psychiatric Exam Present: normal affect, normal thought process, cooperative Results 05/28/17 04:12 05/28/17 04:12 CBC 05/28/17 Range/Units 04:12 WBC 11.8 H (4.5-11.0) T/MM3 RBC 3.83 L (4.00-5.20) M/MM3 Hgb 11.5 L (12-16) GM/DL Hct 34.8 L (36-46) % Plt Count 231 (130-400) T/MM3 Comprehensive Metabolic Panel 05/28/17 Range/Units 04:12 Sodium 144 (134-144) MEQ/L Potassium 3.4 L (3.6-5) MEQ/L Chloride 104 (98-107) MEQ/L Carbon Dioxide 29 (22-30) MEQ/L BUN 12.0 (7-17) MG/DL Creatinine 0.7 (0.7-1.2) mg/dL Glucose 127 H (65-110) MG/DL Calcium 9.3 (8.4-10.2) MG/DL Intake and Output 05/28/17 05/28/17 05/28/17 06:59 14:59 22:59 Intake Total 300 / 300 1140 / 1140 480 / 480 Balance 300 / 300 1140 / 1140 480 / 480 Intake: Oral 300 / 300 1140 / 1140 480 / 480 Other: Urine Appearance Clear Urine Color Yellow Yellow Stool Color Brown Stool Consistency Soft Formed Size of Bowel Movement Moderate # Voids 1 1 # Bowel Movements 1 Weight 118.2 kg Patient Weight 05/29/17 06:59 Weight 118.2 kg - EKG Interpretation EKG shows: atrial fibrillation Assessment and Plan - Assessment and Plan Symptomatic New Onset atrial fibrillation with RVR, chads 2 vasc score at least one,fairly rate controlled Hyperthyroidism status post radioactive iodine ablation March 2017, still with a suppressed TSH, free T4 T3 recheck per Endo Morbid obesity with history of loud snoring and suspected obstructive sleep apnea hyperglycemia hypokalemia per 1ry continue Rate control and anticoagulation no cardioversion at this time. rate control is acceptable. I'm hesitant to push for strict rate control while PTU is just started. continue high dose BB increase activity looks stable for discharge d/w DR Osorio and RN outpt f/u and tests set up Hospital Course Summary Disclaimer: The visit summary below is not to be considered part of the above Progress Note. Hospital Course: 05/24/17 OBS Admission Patient will be admitted to the ICU under the care of Dr. Madrid. Consultations placed to Dr. Jackson for further cardiology management and recommendations. Patient was given both IV and by mouth boluses of Cardizem while in the emergency room. She will now be placed on Esmolol Drip for cardiac rate control. Monitor carefully on telemetry and obtain serial troponins 3. Patient was given Xarelto 20 milligrams by mouth 1 while in the emergency room. We will continue this daily for anticoagulation. Half-normal saline at 75 ML per hour for gentle hydration. Patient has known hyperthyroidism and underwent a thyroid ablation on April 02. TSH remains less than 0.02. May need to speak with Dr. Reinoso, patient's head of partner development. Obtain CBC, BMP and magnesium tomorrow to follow blood counts, renal function and electrolytes. At time of discharge medical care will return to primary care provider, Dr Belcher. 05/25/17 Oral propranolol started by Dr Jackson-working to wean down esmolol. Rhythm afib with rapid and variable rate. Continue Xarelto for anticoagulation. Renal status stable post IV contrast. Taking po well. Will discontinue IVF. Free T3 and T4 pending. Will place consult for Evaluation by Dr Reinoso - is scheduled to see him in about 2 weeks. Monitor BMP and Mg secondary to medications use. Will recheck CBC in am due to Xarelto use. Continue CCU care and monitoring - with persistent afib with RVR, patient not able to move to medical floor at this time. With continued need for IV drip to control rate, will change to inpatient admission status. 05/26/17 Sodium normalized at 144. Hemoglobin with decrease to 11.[address] Jackson increasing oral propranolol in attempt to wean off esmolol. PTU started by Dr Reinoso. He would not recommend attempt at cardioversion until thyroid status stabilizes. Bowels moved well post Dulcolax suppository. 05/27/17 Heart rate improving - able to be weaned off esmolol yesterday evening. Continues on Propranolol LA 360mg daily -- Has had 2 doses of IV Digoxin 0.25mg (available prn for total of [address] doses). Dr Reinoso recommending Free T4 tomorrow to help assess PTU effect. Encourage increasing activities. Will transfer to floor for continuation of care. 05/28/17 HR improving with Propranolol. BP stable and patient not orthostatic. Ambulating well. Continues on Propranolol LA 360mg daily -- Has had 2 doses of IV Digoxin 0.25mg (available prn for total of 4 doses). Free T4 without change at 6.09. Dr Reinoso recommending continuing PTU. Will give oral potassium as level decreased to 3.4 this am.
--- NOTE | 2017-05-28 19:11 | Discharge Summary ---
Discharge Information Date of admission: 05/25/17 15:32 Anticipated date of discharge: 05/28/17 Attending Physician: Osvaldo Madrid MD Primary care physician: Tommy Belcher II, MD Consults: Physician Consult: Burke Reinoso Reason For Exam: Suppressed TSH; Graves with ablation Physician Consult: Dr Jackson Reason For Exam: Afib with RVR - Discharge Diagnosis (1) Atrial fibrillation with RVR Status: Acute Discharge diagnosis New-onset atrial fibrillation with rapid ventricular rate Associated conditions and complications Thyrotoxicosis Hypernatremia (POA) - resolved Graves' disease Constipation Morbid obesity 6 mm lingular pulmonary nodule History of ovarian cancer - Laboratory Labs: Admit Lab 05/24/17 06:10 WBC 9.1 Hgb 12.9 Hct 37.8 MCV 89.8 Plt Count 264 Neut % (Auto) 71.6 H Lymph % (Auto) 17.3 L [place] % (Auto) 9.6 H Eos % (Auto) 1.2 Baso % (Auto) 0.2 Admit Lab 05/24/17 06:10 Sodium 146 H Potassium 3.6 Chloride 108 H Carbon Dioxide 25 Anion Gap 13 BUN 16.0 Creatinine 0.7 GFR Calculation 86 BUN/Creatinine Ratio 23 Glucose 176 H Calculated Osmolality 286 H Calcium 10.1 Total Bilirubin 0.40 Icterus Index < 2 AST 26 ALT 30 Alkaline Phosphatase 91 Troponin I < 0.012 Total Protein 6.9 Albumin 3.9 Globulin 3.0 Albumin/Globulin Ratio 1.3 Thyroid Function Tests 05/24/17 05/24/17 05/28/17 06:10 06:10 04:12 TSH < 0.02 L Free T4 6.08 H 6.09 H Free T3 19.80 H 05/28/17 04:12 05/28/17 04:12 - Radiology Radiology: Date of Exam: 05/24/17 PROCEDURE: CT angio pulm emboli Findings: Pulmonary arteries: Exam is diagnostic to the segmental pulmonary arterial level. No filling defects identified to suggest a pulmonary embolus. Other findings: No pneumothorax or pleural effusion. No consolidative pneumonia. There is a new irregular subpleural 6 mm nodule in the lingula on axial image #34. The lung flynn are otherwise clear. Central airways are patent. No axillary or mediastinal adenopathy. Heart size is normal. Upper abdomen shows no acute findings. Impression: 1. No pulmonary embolus or acute disease process seen in the chest. 2. New 6 mm lingular pulmonary nodule raising concern for metastasis. Date of Exam: 05/24/17 PROCEDURE: CHEST 2-VIEWS UPRIGHT (PA & LAT) FINDINGS: The lungs are clear without evidence of focal abnormal airspace opacity. There is no pleural effusion or pneumothorax. Left IJ port catheter. The heart size, mediastinal contours and pulmonary vascularity are within normal limits. There is no significant skeletal abnormality. IMPRESSION: No acute cardiopulmonary disease. History of Present Illness HPI: Loreto is a pleasant 57-year-old female who presented to the emergency room this morning for evaluation of shortness of breath. She reports she has been more fatigued and dyspneic since Sunday 05/21. She notes with minimal exertion she becomes very short of breath and also reports feeling palpitations intermittently. Upon arrival to the emergency room she was found to be in atrial fibrillation with rapid ventricular rate 120-180. Further workup was performed in the emergency room, WBC was normal. Sodium was found to be elevated at 146, potassium normal 3.6. Troponin was undetectable. TSH was found to be less than 0.02. UA is negative and D-dimer is elevated at 334. CT of the chest was performed which does reveal a lingular 4 millimeter nodule in the lungs however no acute pulmonary emboli or other abnormality. Patient was given 20 milligrams of IV Cardizem as well as oral 30 milligrams IR Cardizem. She was also given Xarelto 20 milligrams [address] Jackson was contacted and accepted patient in consultation, the hospitalist services were contacted and accepted patient for admission to the ICU for ongoing evaluation and treatment. For complete details of the H&P refer to that document. Objective Vital signs: Temperature 98.3 F 05/28/17 15:15 Pulse Rate 96 05/28/17 16:02 Respiratory Rate 20 05/28/17 15:15 Blood Pressure 114/68 05/28/17 15:15 Pulse Oximetry 97 05/28/17 15:15 Rhythm: Atrial Fibrillation with RVR Height/Weight/BMI: Weight 118.2 kg Hospital Course This is a general summary of the patient's hospital course. For more details refer to the complete medical record. Hospital course: 05/24/17 OBS Admission Patient will be admitted to the ICU under the care of Dr. Madrid. Consultations placed to Dr. Jackson for further cardiology management and recommendations. Patient was given both IV and by mouth boluses of Cardizem while in the emergency room. She will now be placed on Esmolol Drip for cardiac rate control. Monitor carefully on telemetry and obtain serial troponins 3. Patient was given Xarelto 20 milligrams by mouth 1 while in the emergency room. We will continue this daily for anticoagulation. Half-normal saline at 75 ML per hour for gentle hydration. Patient has known hyperthyroidism and underwent a thyroid ablation on April 02. TSH remains less than 0.02. May need to speak with Dr. Reinoso, patient's psychiatric social worker. Obtain CBC, BMP and magnesium tomorrow to follow blood counts, renal function and electrolytes. At time of discharge medical care will return to primary care provider, Dr Belcher. 05/25/17 Oral propranolol started by Dr Jackson-working to wean down esmolol. Rhythm afib with rapid and variable rate. Continue Xarelto for anticoagulation. Renal status stable post IV contrast. Taking po well. Will discontinue IVF. Free T3 and T4 pending. Will place consult for Evaluation by Dr Reinoso - is scheduled to see him in about 2 weeks. Monitor BMP and Mg secondary to medications use. Will recheck CBC in am due to Xarelto use. Continue CCU care and monitoring - with persistent afib with RVR, patient not able to move to medical floor at this time. With continued need for IV drip to control rate, will change to inpatient admission status. 05/26/17 Sodium normalized at 144. Hemoglobin with decrease to 11.[address] Jackson increasing oral propranolol in attempt to wean off esmolol. PTU started by Dr Reinoso. He would not recommend attempt at cardioversion until thyroid status stabilizes. Bowels moved well post Dulcolax suppository. 05/27/17 Heart rate improving - able to be weaned off esmolol yesterday evening. Continues on Propranolol LA 360mg daily -- Has had 2 doses of IV Digoxin 0.25mg (available prn for total of [address] Reinoso recommending Free T4 tomorrow to help assess PTU effect. Encourage increasing activities. Will transfer to floor for continuation of care. 05/28/17 - - Discharge HR improving with Propranolol. BP stable and patient not orthostatic. Ambulating well. Continues on Propranolol LA 360mg daily -- Has had 2 doses of IV Digoxin 0.25mg (available prn for total of 4 doses). Free T4 without change at 6.09. Dr Reinoso recommending continuing PTU. Will give oral potassium as level decreased to 3.4 this am. Evening recheck Doing well. No new problems. Ambulating well. HR stable. Tolerating medications. Dr Jackson evaluated patient and feels is medically stable to go home. Will discharge to home. May return to work on Friday06/02/17. Medication changes: Xarelto 20mg daily with supper for anticoagulation. Propranolol 360md daily for heart rate control. PTU 150mg q 6 hours due to hyperthyroidism. Stop Mobic secondary to Xarelto use to decrease risk of GI bleeding. Will need weekly Free T4 to evaluate PTU effect. F/U with Dr Belcher in 1 week for medical evaluation F/U with Dr Jackson: 06/04/17 Holter monitor [address] Jackson's office in [place] 06/09/[address] Jackson's office in [place] 06/11/17 Follow up for all of these appointments at 2:[address] Jackson's office in [place] F/U with Dr Reinoso in 1-2 weeks for endocrine evaluation. See orders for details. Time spent with patient: discharge greater than 30 minutes Resuscitation Status: Full Code Discharge Plan - Discharge Disposition Discharge Date: 05/28/17 Disposition: 01 Discharged Home, Self-Care *Condition: Stable Reason For Visit (Visit label in EMR): Afib with RVR - Discharge Medications *Discharge Medications: New Propylthiouracil 150 mg PO Q6HR #60 tab Rivaroxaban [Xarelto] 20 mg PO WS #30 tab Propranolol HCl [Inderal LA] 360 mg PO DAILY #30 cap.sa.24h Continue Acetaminophen [Tylenol] 1,000 mg PO Q5H PRN PRN Reason: Pain Calcium Carbonate [Calcium] 1 tab PO DAILY multivitamin tablet 1 tab PO DAILY potassium gluconate 550 mg (90 mg) tablet 550 mg PO DAILY tab magnesium oxide 400 mg capsule 1 cap PO BID cap Discontinued Mobic (Meloxicam) 7.5 mg tablet 7.5 mg PO BID tab - Discharge Packet/Instructions *Diet: Low sodium *Activity: As tolerated - return to work on 06/02/17 *Pain Management/Treatment: Tylenol okay to use. Do not use Mobic while on Xarelto as could cause bleeding from the gut. *Wound Care: n/a *Expected Signs/Symptoms: Improvement of heart rate *Notify Physician if: Persistent fast heart rate, persistent slow heart rate, increasing dizziness with positional changes. *During Business Hours Contact: Arleth Stephen, or Simi. *After Business Hours Contact: Call [facility] and have your care provider contacted. *Pending Lab/Results: No Pending Lab - Referrals/Follow Up *Referrals/Follow Up: Burke Reinoso MD [Physician] - 2 Weeks (Needs to have weekly Free T4 checked. ) Tommy Belcher II, MD [Family Provider] - 1 Week (Medical follow up for Afib/ RVR ) Amy Jackson MD [Physician] - (06/04/17 Holter monitor [address] Jackson's office in [place] 06/09/[address] Jackson's office in [place] 06/11/17 Follow up for all of these appointments at 2:[address] Jackson's office in [place] ) - Patient Handouts Patient Handouts: A-fib (Atrial Fibrillation) (GEN) - Dismissal Complete Discharge Instructions are:: Complete Physician Narrative - Narrative Physician: Osvaldo Madrid MD Attestation Narrative: Date: 05/28/17 Time: 1907 I have independently interviewed and examined patient prior to discharge. See my progress noted from today for details. Medically stable for discharge to home.
== END 2017-05-28 19:35 | disposition home or self-care (01) | DRG 309 ==
LOC: ED 05:38 → CCU 05:38 → MED 05-27 13:54
PROVIDERS: ADMIT Hospitalist; ATTEND Hospitalist